=== PATIENT | female | born 1950 | race Caucasian/White ===

== ENCOUNTER 2017-04-15 11:59 | Emergency (ER) | payer OTHER ==
[2017-04-15 12:04] VITALS: O2SAT 100
[2017-04-15 12:16] VITALS: BMI 26.2
[2017-04-15 13:54] LABS: BASO # 0.1 K/uL (0.0-0.2); BASO % 0.9 % (0.0-2.0); EOS # 0.1 K/uL (0.0-0.7); EOS % 1.3 % (0.0-4.0); HEMATOCRIT 42.5 % (34.0-47.0); LYMPH % 26.6 % (20.0-40.0); MEAN CELL VOLUME 100.2 fL (81.0-99.0); MEAN CORPUSCULAR HEMOGLOBIN 33.7 pg (27.0-31.0); MEAN CORPUSCULAR HGB CONC 33.6 g/dL (33.0-37.0); MEAN PLATELET VOLUME 9.4 fL (7.2-11.7); MONO # 0.5 K/uL (0.0-0.8); NRBC % 0.1 % (0.0-2.0); RED CELL DISTRIBUTION WIDTH 12.7 % (11.5-14.5); WHITE BLOOD COUNT 7.5 K/uL (4.8-10.8)
[2017-04-15 14:08] LABS: RBC URINE 1 /hpf (0-3); URINE BACTERIA RARE (<OCC); URINE BILIRUBIN NEGATIVE (NEGATIVE); URINE BLOOD NEGATIVE (NEGATIVE); URINE COLOR Yellow (YELLOW); URINE GLUCOSE (UA) NORMAL (Normal); URINE KETONE NEGATIVE (NEGATIVE); URINE LEUKOCYTE ESTERASE 1+ Leu/uL (Negative); URINE PROTEIN NEGATIVE (NEGATIVE); WBC URINE 13 /hpf (0-5)
[2017-04-15 14:38] LABS: CHLORIDE 101 mmol/L (98-107)
[2017-04-15 14:39] LABS: POTASSIUM 4.6 mmol/L (3.6-5.2); SODIUM 136 mmol/L (132-148)
[2017-04-15 14:41] LABS: ALKALINE PHOSPHATASE 79 U/L (38-126); ALT/SGPT 35 U/L (9-52); AST/SGOT 32 U/L (14-36); BILIRUBIN,TOTAL 0.4 mg/dL (0.2-1.3); BLOOD UREA NITROGEN 12 mg/dL (7-17); CARBON DIOXIDE 29 mmol/L (22-30); GFR AFRICAN-AMERICAN > 60; TOTAL PROTEIN 8.1 g/dL (6.3-8.3)
[2017-04-15 14:42] LABS: CALCIUM 8.4 mg/dl (8.6-10.4); GLUCOSE,RANDOM 72 mg/dL (65-105)
[2017-04-15 14:46] VITALS: BP 185/93; PULSE 92; RESP 18; TEMP 98.1
--- NOTE | 2017-04-15 14:56 | C.PDOC ---
History Of Present Illness 66 year old female, with a history of Diabetes and HTN, presents to the ED with complaints of weakness and cramping of the lower extremities beginning this morning. Patient states she accidentally took Novolog insulin this morning instead of her Levemir, and symptoms began soon after. Patient went to see her PMD, Dr. Chester, in the office and blood sugar was low (60s), so EMS was called. Patient was given oral glucose in the field. Patient also notes blurry vision and tingling of lower extremities. She denies headache, LOC, slurred speech, facial droop, chest pain, shortness of breath, palpitations, dysuria/hematuria. Time Seen by Provider: 04/15/17 13:22 Chief Complaint (Nursing): Medical Clearance History Per: Patient History/Exam Limitations: no limitations Onset/Duration Of Symptoms: Hrs Current Symptoms Are (Timing): Better Reports Recently: Treated By A Physician (Dr. Chester ) Additional History Per: Prior Records Past Medical History Reviewed: Historical Data, Nursing Documentation, Vital Signs Vital Signs: Last Vital Signs Temp 98.1 F 04/15/17 14:45 Pulse 92 H 04/15/17 14:45 Resp 18 04/15/17 14:45 BP 185/93 H 04/15/17 14:45 Pulse Ox 100 04/15/17 16:00 - Medical History PMH: Hypercholesterolemia - [facility] Procedures CONTRAST ARTERIOGRAM-LEG (05/04/14) Family History: States: No Known Family Hx - Social History Hx Alcohol Use: No Hx Substance Use: No - Immunization History Hx Tetanus Toxoid Vaccination: No Hx Influenza Vaccination: No Hx Pneumococcal Vaccination: No Review Of Systems Except As Marked, All Systems Reviewed And Found Negative. Constitutional: Positive for: Weakness. Negative for: Fever, Chills Cardiovascular: Negative for: Chest Pain, Palpitations Respiratory: Negative for: Cough, Shortness of Breath Gastrointestinal: Negative for: Nausea, Vomiting, Abdominal Pain, Diarrhea Neurological: Positive for: Numbness. Negative for: Weakness, Confusion, Seizures, Altered Mental Status, Headache, Dizziness Physical Exam - Physical Exam Appears: Well, Non-toxic, No Acute Distress Skin: Warm, Dry, No Rash Head: Atraumatic, Normacephalic, No Tenderness Eye(s): bilateral: Normal Inspection, PERRL, EOMI Oral Mucosa: Moist Neck: Supple Cardiovascular: Rhythm Regular Respiratory: Normal Breath Sounds, No Rales, No Rhonchi, No Wheezing Gastrointestinal/Abdominal: Normal Exam, Bowel Sounds, Soft, No Tenderness, No Guarding, No Rebound Extremity: Normal ROM, No Tenderness, No Pedal Edema, No Calf Tenderness, Capillary Refill (< 2 sec all digits) Neurological/Psych: Oriented x3, Normal Speech, Normal Cognition, Normal Cranial Nerves, No Cerebellar Signs, Normal Motor, Normal Sensation Gait: Steady ED Course And Treatment - Laboratory Results Result Diagrams: 04/15/17 13:44 04/15/17 13:44 O2 Sat by Pulse Oximetry: 100 (RA) Pulse Ox Interpretation: Normal Progress Note: Blood work, UA ordered and reviewed. Patient given PO Gabapentin (her usual afternoon dose that she takes for neuropathy). Patient observed in ED and accucheck repeated. Food and juice given. Reevaluation Time: 15:00 Reassessment Condition: Improved (Patient reassessed, is resting comfortably, states she feels well and is comfortable being discharged home. Repear accucheck is 109. Patient discharged home, instructed to continue her regular insulin but hold Levemir today and restart it tomorrow. She was instructed to follow up with PMD in 1-2 days, and she understands she should return to ED if symptoms worsen.) Disposition Counseled Patient/Family Regarding: Studies Performed, Diagnosis, Need For Followup - Disposition Referrals: Sharan Chester MD [Staff Provider] - Disposition: HOME/ ROUTINE Disposition Time: 15:00 Condition: STABLE Additional Instructions: FOLLOW UP WITH DR CHESTER IN 1-2 DAYS CONTINUE USING HUMALOG TODAY AFTER MEALS RESTART YOUR USUAL INSULIN REGIMEN TOMORROW RETURN TO ER IF YOU HAVE ANY CONCERNING SYMPTOMS Instructions: Diabetic Hypoglycemia (ED) Forms: [employer] (Swedish) Print Language: MACANESE - Clinical Impression Clinical Impression: Hypoglycemia, Medication error - Scribe Statement The provider has reviewed the documentation as recorded by the Scribe Rahel Garcia All medical record entries made by the Scribe were at my direction and personally dictated by me. I have reviewed the chart and agree that the record accurately reflects my personal performance of the history, physical exam, medical decision making, and the department course for this patient. I have also personally directed, reviewed, and agree with the discharge instructions and disposition.
== END 2017-04-15 15:08 | disposition home or self-care (01) ==
LOC: C.ER 11:59
DX: T38.3X1A Poisoning by insulin and oral hypoglycemic [antidiabetic] drugs, accidental (unintentional), initial encounter (principal); E11.649 Type 2 diabetes mellitus with hypoglycemia without coma; Z79.4 Long term (current) use of insulin; Y92.89 Other specified places as the place of occurrence of the external cause; I10 Essential (primary) hypertension

== ENCOUNTER 2017-12-06 20:07 | Emergency (ER) | payer OTHER ==
[2017-12-06 20:10] VITALS: BMI 24.3
[2017-12-06 20:14] VITALS: BP 150/78; RESP 18
[2017-12-06 20:16] VITALS: PULSE 84; TEMP 98.6; O2SAT 98
--- NOTE | 2017-12-06 20:38 | C.PDOC ---
History Of Present Illness 67 year old female is brought to the ED by EMS for evaluation of left sacroiliac pain. Protocol noticed accucheck was low. Patient refused dextrose and wanted glucose paste instead. Patient reports she was about to eat prior EMS arrival. Patient denies trauma, injury, fall, trauma, hx back pain, narcotics use. Time Seen by Provider: 12/06/17 20:33 Chief Complaint (Nursing): High Blood Sugar History Per: Patient History/Exam Limitations: no limitations Onset/Duration Of Symptoms: Days Current Symptoms Are (Timing): Still Present Current Diabetic Medications: None Causative (Exacerbating) Factor(s): Missed A Meal Treatment Prior To Provider Evaluation: Accucheck Response To Treatment: Good Response Recent travel outside of the [place] States: No Additional History Per: Patient Past Medical History Reviewed: Historical Data, Nursing Documentation, Vital Signs Vital Signs: Last Vital Signs Temp 98.6 F 12/06/17 20:14 Pulse 84 12/06/17 20:14 Resp 18 12/06/17 20:14 BP 150/78 12/06/17 20:14 Pulse Ox 98 12/07/17 01:26 - Medical History PMH: Hypercholesterolemia Denies: Chronic Kidney Disease Surgical History: No Surg Hx - [facility] Procedures CONTRAST ARTERIOGRAM-LEG (05/04/14) Family History: States: Unknown Family Hx - Social History Hx Alcohol Use: No Hx Substance Use: No - Immunization History Hx Tetanus Toxoid Vaccination: No Hx Influenza Vaccination: No Hx Pneumococcal Vaccination: No Review Of Systems Constitutional: Negative for: Fever, Chills Cardiovascular: Negative for: Chest Pain, Palpitations Respiratory: Negative for: Shortness of Breath Gastrointestinal: Negative for: Nausea, Vomiting Musculoskeletal: Positive for: Back Pain Skin: Negative for: Rash Physical Exam - Physical Exam Appears: Non-toxic, No Acute Distress Skin: Normal Color, Warm, Dry Head: Atraumatic, Normacephalic Eye(s): bilateral: Normal Inspection Oral Mucosa: Moist Neck: Normal ROM, Supple Chest: Symmetrical Cardiovascular: Rhythm Regular Respiratory: Normal Breath Sounds, No Rales, No Rhonchi, No Wheezing Gastrointestinal/Abdominal: Soft, No Tenderness, No Guarding, No Rebound Back: No Paraspinal Tenderness Extremity: Normal ROM, No Tenderness, No Swelling Neurological/Psych: Oriented x3, Normal Speech Gait: Steady ED Course And Treatment O2 Sat by Pulse Oximetry: 98 (ON RA) Pulse Ox Interpretation: Normal Progress Note: asked if pt using narcotic pain relivers due to intermittent asleep then arguing with physican and staff and pinpoint pupils, multiple cycles during ED visit. pt denies. Was very upset to have been asked, and left ED soon after ice and Toradol with a brisk gait, yelling at staff, with seemingly minimal hip/lower back pain. Medical Decision Making Medical Decision Making: pinpoint pupils and intermittently awake and yelling, then asleep [place] neg, ? underlying narcotics use, pt denies. ice and NSAIDS educated sacro-iliac strain, worse due to hot rubs. Disposition Doctor Will See Patient In The: Office Counseled Patient/Family Regarding: Studies Performed, Diagnosis - Disposition Referrals: Sharan Chester MD [Staff Provider] - Disposition: HOME/ ROUTINE Disposition Time: 20:42 Condition: GOOD Additional Instructions: bolsa de hielo 1/2 hora por hora, nada caliente ibuprofeno/advil 400-600 mg cada 6 horas jorge necessario NO applica nada caliente- se hace mas inflammado y doloroso. No rigo moni caliente, se hace mas inflammado, y doloroso. Instructions: Muscle Strain, Sacroiliac Joint Pain Forms: [facility] (Polish) Print Language: GEORGIAN - Clinical Impression Clinical Impression: Sacroiliac strain - Scribe Statement The provider has reviewed the documentation as recorded by the Scribe Chris Bocanegra All medical record entries made by the Scribe were at my direction and personally dictated by me. I have reviewed the chart and agree that the record accurately reflects my personal performance of the history, physical exam, medical decision making, and the department course for this patient. I have also personally directed, reviewed, and agree with the discharge instructions and disposition.
== END 2017-12-06 21:00 | disposition home or self-care (01) ==
LOC: C.ER 20:07
DX: S39.012A Strain of muscle, fascia and tendon of lower back, initial encounter (principal); X58.XXXA Exposure to other specified factors, initial encounter
CPT/HCPCS: 82948; 96374; 99284; J1885

== ENCOUNTER 2018-06-04 12:45 | Emergency (ER) | payer OTHER ==
[2018-06-04 15:24] LABS: HCG,QUALITATIVE URINE NEGATIVE (NEGATIVE)
[2018-06-04 15:25] LABS: HEMOGLOBIN 14.5 g/dL (11.0-16.0); MEAN CELL VOLUME 96.6 fL (81.0-99.0); MEAN CORPUSCULAR HEMOGLOBIN 32.3 pg (27.0-31.0); MEAN CORPUSCULAR HGB CONC 33.4 g/dL (33.0-37.0); RBC 4.5 Mil/uL (3.80-5.20); RED CELL DISTRIBUTION WIDTH 13.6 % (11.5-14.5)
[2018-06-04 15:26] LABS: BASO % 0.4 % (0.0-2.0); EOS % 0.1 % (0.0-4.0); LYMPH # 1.1 K/uL (1.0-4.3); LYMPH % 11.5 % (20.0-40.0); MEAN PLATELET VOLUME 10.4 fL (7.2-11.7); MONO # 0.5 K/uL (0.0-0.8); MONO % 5.3 % (0.0-10.0); NEUT # 8.3 K/uL (1.8-7.0); NEUT % 82.7 % (50.0-75.0); NRBC % 0.1 % (0.0-2.0)
[2018-06-04 15:28] LABS: CALCIUM 9.5 mg/dl (8.6-10.4)
[2018-06-04 15:29] LABS: ALB/GLOB RATIO 1.3 (1.0-2.1); ALBUMIN 5.2 g/dL (3.5-5.0)
[2018-06-04 15:37] LABS: SQUAMOUS EPITHIAL 22 /hpf (0-5); URINE BACTERIA FEW (<OCC); URINE BILIRUBIN NEGATIVE (NEGATIVE); URINE BLOOD NEGATIVE (NEGATIVE); URINE CLARITY Hazy (Clear); URINE COLOR Yellow (YELLOW); URINE GLUCOSE (UA) 1+ mg/dL (Normal); URINE HYALINE CAST >20 /lpf (0-2); URINE LEUKOCYTE ESTERASE 1+ Leu/uL (Negative); URINE PROTEIN 1+ mg/dL (NEGATIVE); URINE UROBILINOGEN NORMAL mg/dL (0.2-1.0)
[2018-06-04 15:49] LABS: CK-MB 1.25 ng/mL (0.0-3.38); TROPONIN I 0.025 ng/mL (0.00-0.120)
[2018-06-04] MEDS ORDERED: Sodium Chloride 0.9% 1,000 ML IV ONE (16:29)
--- NOTE | 2018-06-04 16:55 | C.PDOC ---
Past Medical History - Medical History PMH: Hypercholesterolemia Denies: Chronic Kidney Disease - [facility] Procedures CONTRAST ARTERIOGRAM-LEG (05/04/14) Family History: States: Unknown Family Hx - Social History Hx Alcohol Use: No Hx Substance Use: No - Immunization History Hx Tetanus Toxoid Vaccination: No Hx Influenza Vaccination: No Hx Pneumococcal Vaccination: No ED Course And Treatment - Laboratory Results Result Diagrams: 06/04/18 12:56 06/04/18 12:56 Disposition Counseled Patient/Family Regarding: Studies Performed, Diagnosis, Need For Followup, Rx Given - Disposition Referrals: [facility] [Outside] Disposition: HOME/ ROUTINE Disposition Time: 16:52 Condition: STABLE Additional Instructions: FOLLOW UP WITH YOUR DOCTOR/CLINIC IN 1-2 DAYS USE MEDICATION NEEDED DRINK PLENTY OF CLEAR FLUIDS RETURN TO ER IF SYMPTOMS WORSEN Prescriptions: Ondansetron ODT [Zofran ODT] 1 odt PO BID PRN #15 odt PRN Reason: Nausea/Vomiting Instructions: Nausea and Vomiting, Adult (DC) Print Language: AUSTRIAN - Clinical Impression Clinical Impression: Nausea & vomiting
[2018-06-04 17:02] VITALS: BP 138/79; PULSE 94; RESP 19; TEMP 99.1; O2SAT 95
[2018-06-05 11:41] LABS: VENOUS BLOOD GAS PCO2 47 mmHg (40-60); VENOUS BLOOD PH 7.32 (7.32-7.43)
[2018-06-05 11:42] LABS: VENOUS BLOOD GAS BASE EXCESS -2.2 mmol/L (0.0-2.0); VENOUS BLOOD GAS PO2 20 mm/Hg (30-55)
--- NOTE | 2018-06-05 23:17 | CARD ---
APPROVED REPORT Date of service: 06/04/2018 EKG Measurement Heart [id number] <Conclusion> Sinus rhythm with sinus arrhythmia with short PA Possible Left atrial enlargement Left ventricular hypertrophy Abnormal ECG
== END 2018-06-04 17:10 | disposition home or self-care (01) ==
LOC: C.ER 12:45
DX: K52.9 Noninfective gastroenteritis and colitis, unspecified (principal)

== ENCOUNTER 2018-08-01 16:11 | Inpatient (IN) | payer OTHER ==
[2018-08-01 16:24] VITALS: BMI 23.3
[2018-08-01] MEDS ORDERED: Labetalol 25mg/5ml Syringe IVP STA (16:24)
[2018-08-01] MEDS ORDERED: Nitroglycerin 2% Ointment Foilpak UD TOP STA (16:24)
[2018-08-01 16:47] LABS: BASO # 0.1 K/uL (0.0-0.2); BASO % 0.3 % (0.0-2.0); HEMOGLOBIN 13.9 g/dL (11.0-16.0); LYMPH # 0.6 K/uL (1.0-4.3); LYMPH % 2.8 % (20.0-40.0); MEAN CELL VOLUME 95.2 fL (81.0-99.0); MEAN CORPUSCULAR HEMOGLOBIN 30.9 pg (27.0-31.0); MEAN CORPUSCULAR HGB CONC 32.5 g/dL (33.0-37.0); MEAN PLATELET VOLUME 10.1 fL (7.2-11.7); MONO # 0.5 K/uL (0.0-0.8); MONO % 2.3 % (0.0-10.0); NEUT # 19.5 K/uL (1.8-7.0); NEUT % 94.6 % (50.0-75.0); PLATELET COUNT 249 K/uL (130-400); RED CELL DISTRIBUTION WIDTH 13.6 % (11.5-14.5); WHITE BLOOD COUNT 20.6 K/uL (4.8-10.8)
[2018-08-01] MEDS ORDERED: Labetalol 5mg/ml (4ml) ONE (16:49)
[2018-08-01] MEDS ORDERED: Nitroglycerin 2% Ointment Foilpak UD TOP ONE (16:49)
[2018-08-01 16:55] LABS: INR 1.1; PROTHROMBIN TIME 12.1 SECONDS (9.7-12.2)
[2018-08-01 17:22] LABS: BLOOD UREA NITROGEN 26 mg/dL (7-17); CALCIUM 9.6 mg/dl (8.6-10.4); GFR NON-AFRICAN AMERICAN > 60
[2018-08-01 17:33] LABS: B-TYPE NATRIURETIC PEPTIDE 955 pg/mL (0-900); BANDS 5 % (0-2); LYMPHOCYTE 1 % (20-40); MICROCYTOSIS SLIGHT; MONOCYTE 2 % (0-10); NEUTROPHIL 92 % (50-75); PLATELET ESTIMATE NORMAL (NORMAL); TOTAL CELLS COUNTED 100
[2018-08-01 17:34] LABS: ALB/GLOB RATIO 1.5 (1.0-2.1); ALBUMIN 5.4 g/dL (3.5-5.0); ALT/SGPT 11 U/L (9-52); AST/SGOT 55 U/L (14-36)
[2018-08-01] MEDS ORDERED: Sodium Chloride 0.9% 1,000 ML IV ONE (17:37)
[2018-08-01] MEDS ORDERED: (Novolin R) Insulin Human Regular 100 units/ml vial IVP STA (17:37)
[2018-08-01 17:38] LABS: OVALOCYTES SLIGHT
[2018-08-01] MEDS ORDERED: (Novolin R) Insulin Human Regular 100 units/ml vial ONE (17:46)
--- NOTE | 2018-08-01 17:48 | C.PDOC ---
History Of Present Illness 67 y/o female pt presents to the ER c/o elevated blood pressure. Associated sx includes vomiting. Pt reports she was unable to take her blood pressure medications due to her vomiting. Pt was seen before in the ER for same and recent visit was June 04. Pt has no other complaints or associated sx. Time Seen by Provider: 08/01/18 16:13 Chief Complaint (Nursing): GI Problem History Per: Patient History/Exam Limitations: no limitations Onset/Duration Of Symptoms: Days Current Symptoms Are (Timing): Still Present Past Medical History Reviewed: Historical Data, Nursing Documentation, Vital Signs Vital Signs: Last Vital Signs Temp 97.9 F 08/01/18 16:27 Pulse 78 08/01/18 17:32 Resp 26 H 08/01/18 17:32 BP 187/112 H 08/01/18 17:32 Pulse Ox 100 08/01/18 17:32 - Medical History PMH: HTN, Hypercholesterolemia Surgical History: Back Surgery (lumbar) - [facility] Procedures CONTRAST ARTERIOGRAM-LEG (05/04/14) Family History: States: Unknown Family Hx - Social History Hx Alcohol Use: No Hx Substance Use: No - Immunization History Hx Tetanus Toxoid Vaccination: No Hx Influenza Vaccination: Yes Hx Pneumococcal Vaccination: No Review Of Systems Except As Marked, All Systems Reviewed And Found Negative. Constitutional: Positive for: Other (elevated blood pressure ) Gastrointestinal: Positive for: Vomiting Physical Exam - Physical Exam Appears: Non-toxic, No Acute Distress Skin: Warm, Dry Head: Normacephalic Eye(s): bilateral: Normal Inspection Oral Mucosa: Moist Throat: Normal Chest: Symmetrical Cardiovascular: Rhythm Regular Respiratory: Normal Breath Sounds Gastrointestinal/Abdominal: Soft, No Tenderness Neurological/Psych: Oriented x3, Normal Speech, Normal Cognition, Other (neuro intact ) ED Course And Treatment - Laboratory Results Result Diagrams: 08/01/18 16:42 08/01/18 16:42 Lab Results: PT 12.1 SECONDS (9.7-12.2) 08/01/18 16:42 INR 1.1 08/01/18 16:42 APTT 29 SECONDS (21-34) 08/01/18 16:42 Troponin I 0.0360 ng/mL (0.00-0.120) 08/01/18 16:42 NT-Pro-B Natriuret Pep 955 pg/mL (0-900) H 08/01/18 16:42 Total Bilirubin 1.7 mg/dL (0.2-1.3) H 08/01/18 16:42 AST 55 U/L (14-36) H D 08/01/18 16:42 ALT 11 U/L (9-52) 08/01/18 16:42 Alkaline Phosphatase 110 U/L (38-126) 08/01/18 16:42 Total Protein 9.0 g/dL (6.3-8.3) H 08/01/18 16:42 Albumin 5.4 g/dL (3.5-5.0) H 08/01/18 16:42 Globulin 3.6 gm/dL (2.2-3.9) 08/01/18 16:42 Albumin/Globulin Ratio 1.5 (1.0-2.1) 08/01/18 16:42 O2 Sat by Pulse Oximetry: 100 (RA) Pulse Ox Interpretation: Normal Medical Decision Making Medical Decision Making: Plans: -- chem labs -- blood work -- EKG -- CXR -- nitroglycerin -- novolin -- pepcid -- IV fluids -- Zofran -- Trandate -- vasotec uncontrolled DM, leading to poor HTN med compliance and vomiting. on minimal NETO @ home. NOT in DKA today adm to continue to hydrate and repleat 1829: noted increasing BP Labetolol 200 mg PO given for BP 1914: asking for Gabepentin 600 PO for restless leg syndrome but vomiting now Zofran 4 IV repeated, then wait 15 mins to give Gabapentin to assure tolerated PO Disposition Doctor Will See Patient In The: Hospital Counseled Patient/Family Regarding: Diagnosis, Smoking Cessation - Disposition Disposition: HOSPITALIZED Disposition Time: 18:00 Condition: GOOD - Clinical Impression Clinical Impression: Nausea & vomiting, Hyperglycemia - Scribe Statement The provider has reviewed the documentation as recorded by the Fransico Eastman Do Provider Attestation: All medical record entries made by the Fransico were at my direction and personally dictated by me. I have reviewed the chart and agree that the record accurately reflects my personal performance of the history, physical exam, medical decision making, and the department course for this patient. I have also personally directed, reviewed, and agree with the discharge instructions and disposition.
--- NOTE | 2018-08-01 17:58 | C.PDOC ---
Time Seen by Provider: 08/01/18 16:13 Chief Complaint (Nursing): GI Problem Past Medical History Vital Signs: Last Vital Signs Temp 97.9 F 08/01/18 16:27 Pulse 78 08/01/18 17:32 Resp 26 H 08/01/18 17:32 BP 199/103 H 08/01/18 17:40 Pulse Ox 100 08/01/18 17:54 - Medical History PMH: HTN, Hypercholesterolemia Denies: Chronic Kidney Disease Surgical History: Back Surgery (lumbar) - [facility] Procedures CONTRAST ARTERIOGRAM-LEG (05/04/14) Family History: States: Unknown Family Hx - Social History Hx Alcohol Use: No Hx Substance Use: No - Immunization History Hx Tetanus Toxoid Vaccination: No Hx Influenza Vaccination: Yes Hx Pneumococcal Vaccination: No ED Course And Treatment - Laboratory Results Result Diagrams: 08/01/18 16:42 08/01/18 16:42 Lab Results: PT 12.1 SECONDS (9.7-12.2) 08/01/18 16:42 INR 1.1 08/01/18 16:42 APTT 29 SECONDS (21-34) 08/01/18 16:42 Troponin I 0.0360 ng/mL (0.00-0.120) 08/01/18 16:42 NT-Pro-B Natriuret Pep 955 pg/mL (0-900) H 08/01/18 16:42 Total Bilirubin 1.7 mg/dL (0.2-1.3) H 08/01/18 16:42 AST 55 U/L (14-36) H D 08/01/18 16:42 ALT 11 U/L (9-52) 08/01/18 16:42 Alkaline Phosphatase 110 U/L (38-126) 08/01/18 16:42 Total Protein 9.0 g/dL (6.3-8.3) H 08/01/18 16:42 Albumin 5.4 g/dL (3.5-5.0) H 08/01/18 16:42 Globulin 3.6 gm/dL (2.2-3.9) 08/01/18 16:42 Albumin/Globulin Ratio 1.5 (1.0-2.1) 08/01/18 16:42 Lab Interpretation: Abnormal ECG: Interpreted By Id ECG Rhythm: Sinus Tachycardia (109) O2 Sat by Pulse Oximetry: 100 (RA) Pulse Ox Interpretation: Normal - Radiology CXR: Interpreted by Me CXR Interpretation: Yes: No Acute Disease Reevaluation Time: 17:56 Reassessment Condition: Improved - Physician Consult Information Outcome Of Conversation: 1750: d/w Dr. Chester, PMD, ok to admit Medical Decision Making Medical Decision Making: uncontrolled DM, leading to poor HTN med compliance and vomiting. on minimal NETO @ home. NOT in DKA today adm to continue to hydrate and repleat Disposition Doctor Will See Patient In The: Hospital Counseled Patient/Family Regarding: Studies Performed, Diagnosis - Disposition Disposition: HOSPITALIZED Disposition Time: 17:57 Condition: GOOD Forms: [employer] (Chilean) - Clinical Impression Clinical Impression: Nausea & vomiting, Hyperglycemia
--- NOTE | 2018-08-01 18:40 | RAD ---
HISTORY: SOB COMPARISON: Chest x-ray performed 10/12/15 TECHNIQUE: Chest, one view. FINDINGS: LUNGS: Hyperinflation may be seen in the setting of COPD. No focal consolidation. Please note that chest x-ray has limited sensitivity for the detection of pulmonary masses. PLEURA: No significant pleural effusion identified. No definite pneumothorax . CARDIOVASCULAR: Heart size appears within limits. Faint atherosclerotic calcifications present. OSSEOUS STRUCTURES: Degenerative changes of the spine. VISUALIZED UPPER ABDOMEN: Unremarkable. OTHER FINDINGS: None. IMPRESSION: Hyperinflation may be seen in setting of COPD.
[2018-08-01 18:47] LABS: SQUAMOUS EPITHIAL 5 /hpf (0-5); URINE BACTERIA FEW (<OCC); URINE BILIRUBIN NEGATIVE (NEGATIVE); URINE BLOOD 1+ (NEGATIVE); URINE CLARITY Hazy (Clear); URINE COLOR Yellow (YELLOW); URINE GLUCOSE (UA) 3+ mg/dL (Normal); URINE LEUKOCYTE ESTERASE TRACE Leu/uL (Negative); URINE PROTEIN 2+ mg/dL (NEGATIVE); URINE UROBILINOGEN NORMAL mg/dL (0.2-1.0)
[2018-08-01] MEDS ORDERED: Glucagon Recombinant 1 mg Inj IM PRN (21:27)
[2018-08-01] MEDS ORDERED: Dextrose 50% SYRINGE Inj (50 ml) IV PRN (21:27)
[2018-08-01] MEDS ORDERED: Lactated Ringer's 1,000 ML IV ONE (21:27)
[2018-08-01] MEDS: (Novolin R) Insulin Human Regular 100 units/ml vial SC SCH (21:54)
[2018-08-01] MEDS ORDERED: (Lantus) Insulin Glargine, Recombinant SC SCH (22:00)
[2018-08-01] MEDS: (Lantus) Insulin Glargine, Recombinant SC SCH (22:12)
[2018-08-02] MEDS ORDERED: Iohexol 240 (50 ml) PO ONE (03:45)
[2018-08-02 07:27] LABS: HEMOGLOBIN 12.8 g/dL (11.0-16.0); MEAN CORPUSCULAR HEMOGLOBIN 31.2 pg (27.0-31.0); MEAN CORPUSCULAR HGB CONC 32.5 g/dL (33.0-37.0); MEAN PLATELET VOLUME 10.6 fL (7.2-11.7); RBC 4.09 Mil/uL (3.80-5.20); RED CELL DISTRIBUTION WIDTH 13.9 % (11.5-14.5)
[2018-08-02 07:31] LABS: WHITE BLOOD COUNT 20.1 K/uL (4.8-10.8)
[2018-08-02 08:04] LABS: ALB/GLOB RATIO 1.5 (1.0-2.1); ALBUMIN 4.6 g/dL (3.5-5.0); ALT/SGPT 32 U/L (9-52); AST/SGOT 33 U/L (14-36); BLOOD UREA NITROGEN 29 mg/dL (7-17); CALCIUM 9.4 mg/dl (8.6-10.4); GFR NON-AFRICAN AMERICAN > 60
[2018-08-02] MEDS: (Novolin R) Insulin Human Regular 100 units/ml vial SC SCH ×4 (08:09→21:47)
[2018-08-02] MEDS ORDERED: Nitroglycerin 2% Ointment Foilpak UD TOP ONE ×2 (09:00→10:15)
[2018-08-02] MEDS ORDERED: Iodixanol 320 MG/ML 100 ML BOTTLE IV ONE (09:59)
[2018-08-02] MEDS: Enoxaparin 40 mg Syringe SC SCH (10:23)
--- NOTE | 2018-08-02 12:09 | CT ---
Date of service: 08/02/2018 PROCEDURE: CT Abdomen and Pelvis with contrast HISTORY: Nausea vomiting and abdominal pain. COMPARISON: Correlation made with prior CTA of the abdomen pelvis and lower extremities dated 02/11/2018. TECHNIQUE: Contiguous helical/transaxial sections of the abdomen pelvis performed following oral and intravenous injection of approximately 100 cc Visipaque 320 contrast material. Additional 2D sagittal and coronal reformats generated. Radiation dose: Total exam DLP = 435.83 mGy-cm. This CT exam was performed using one or more of the following dose reduction techniques: Automated exposure control, adjustment of the mA and/or kV according to patient size, and/or use of iterative reconstruction technique. FINDINGS: LOWER THORAX: Heart size within range of normal. There is a tiny hiatal hernia. Lung bases clear without focal consolidation. No effusion or basilar pneumothorax. LIVER: Liver exhibits normal size. Mild fatty hepatic infiltration. Portal and splenic veins are opacified. No obvious hepatic masses or collections seen on this exam. GALLBLADDER AND BILE DUCTS: Gallbladder is incompletely distended with minimal wall thickening. PANCREAS: Pancreas is atrophic and fatty replaced. No obvious pancreatic mass collection or calcification. Pancreatic duct is visible though not significantly dilated SPLEEN: Spleen exhibits normal size and attenuation pattern without mass collection or calcification. ADRENALS: Mildly enlarged nodular appearing adrenal glands; follow-up nonemergent MRI of the adrenal glands could be performed for further evaluation. KIDNEYS AND URETERS: Kidneys demonstrate symmetric nephrograms. No evidence of nephrolithiasis or hydronephrosis. VASCULATURE: Unremarkable. No aneurysm. Mild aortic atherosclerotic calcification or mural plaque present. BOWEL: Evaluation of the bowel slightly limited due to incomplete opacification. Stomach is partially distended with oral contrast material and air. Slight wall thickening likely due to incomplete distention however gastritis or other intrinsic wall lesion not excluded. Visualized loops of small bowel exhibit normal contour and caliber. No evidence of acute mechanical small bowel obstruction with oral contrast material extending into the colon to the level of the distal transverse colon region. APPENDIX: Normal appendix. PERITONEUM: Unremarkable. No free fluid. No free air. LYMPH NODES: Unremarkable. No enlarged lymph nodes. BLADDER: Urinary bladder is incompletely distended which in part accounts for thick-walled appearance however cystitis should be excluded with urinalysis correlation. REPRODUCTIVE: Unremarkable as visualized. BONES: Mild multilevel degenerative spondylosis of the lower thoracic and lumbar spine.. Redemonstrated is a small sclerotic density left iliac bone possibly representing an osteoma or bone island unchanged OTHER FINDINGS: None. IMPRESSION: Fatty hepatic infiltration Stomach incompletely distended which in part accounts for thick-walled appearance however gastritis or other intrinsic/invasive wall lesion not excluded. Enlarged nodular appearing adrenal glands. Consider follow-up nonemergent MRI of the adrenal glands
--- NOTE | 2018-08-02 12:31 | CP.PCM.CON ---
<Alfonso Bush - Last Filed: 08/02/18 12:51> History of Present Illness - History of Present Illness History of Present Illness: PGY5 GI Initial Consult Rubi York is a 67F w/ hx of DM, HTN, Hl who presented with elevated BP, nausea and vomting. Pt states that her symptoms started 1 day prior to admission. She states that that the onset was sudden. denies any fever, chills or diaphoresis. Denies nay recent travel or sick contacts. Pt sates that she was not able to take her BP meds 2/2 nausea and vomiting. Emesis was bilious and non-bloody. Denies any previous GERD like symptoms. Pt notes 15lb weight loss in the last 3 months. Denies nay previous EGD PMHx: HTN, DM, HL PShx: Denies Social hx: 1/2 pack for 20years, denies ETOH and illicit drugs Family hx: denies any GI related maliganacy Endo hx: Colonoscopy 2014: internal hemorrhoids, left sided colitis 12 point ROS conducted, neg other than above Past Patient History - Past Medical History & Family History Past Medical History?: Yes - Past Social History Smoking Status: Former Smoker - CARDIAC Hx Hypercholesterolemia: Yes Hx Hypertension: Yes - PULMONARY Hx Respiratory Disorders: No - NEUROLOGICAL Hx Neurological Disorder: Yes (DIABETIC NEUROPATHY) Other/Comment: neuropathy - HEENT Hx HEENT Problems: Yes Hx Cataracts: Yes (RIGHT EYE) - RENAL Hx Chronic Kidney Disease: No - ENDOCRINE/METABOLIC Hx Endocrine Disorders: Yes Hx Diabetes Mellitus Type 2: Yes - HEMATOLOGICAL/ONCOLOGICAL Hx Blood Disorders: No - INTEGUMENTARY Hx Dermatological Problems: No - MUSCULOSKELETAL/RHEUMATOLOGICAL Hx Musculoskeletal Disorders: Yes Hx Back Pain: Yes Hx Falls: Yes Other/Comment: neuropathy - GASTROINTESTINAL Hx Gastrointestinal Disorders: No - GENITOURINARY/GYNECOLOGICAL Hx Genitourinary Disorders: No - PSYCHIATRIC Hx Substance Use: No - SURGICAL HISTORY Hx Surgeries: Yes Hx Cataract Extraction: Yes (RIOL) Hx Musculoskeletal Surgery: Yes (LUMBAR SPINE W MARSHA) - ANESTHESIA Hx Anesthesia: Yes Hx Anesthesia Reactions: No Hx Malignant Hyperthermia: No Meds Allergies/Adverse Reactions: Allergies Allergy/AdvReac Type Severity Reaction Status Date / Time No Known Allergies Allergy Verified 04/15/17 12:15 - Medications Medications: Current Medications Dextrose (Dextrose 50% Inj) 0 ml IV STAT PRN; Protocol PRN Reason: Hypoglycemia Protocol Dextrose (Glutose 15) 0 gm PO ONCE PRN; Protocol PRN Reason: Hypoglycemia Protocol Enalapril Maleate (Vasotec) 20 mg PO DAILY [facility] Last Admin: 08/02/18 10:22 Dose: 20 mg Enoxaparin Sodium (Lovenox) 40 mg SC DAILY [facility] Last Admin: 08/02/18 10:23 Dose: 40 mg Gabapentin (Neurontin) 300 mg PO TID [facility] Last Admin: 08/02/18 10:23 Dose: 300 mg Glimepiride (Amaryl) 4 mg PO DAILY [facility] Last Admin: 08/02/18 10:23 Dose: 4 mg Glucagon (Glucagen Diagnostic Kit) 0 mg IM STAT PRN; Protocol PRN Reason: Hypoglycemia Protocol Ceftriaxone Sodium 1 gm/ (Sodium Chloride) 100 mls @ 100 mls/hr IVPB DAILY [facility]; Protocol Last Admin: 08/02/18 10:23 Dose: 100 mls/hr Dextrose (Dextrose 5% In Water 1000 Ml) 1,000 mls @ 0 mls/hr IV .Q0M PRN; Protocol PRN Reason: Hypoglycemia Protocol Insulin Glargine (Lantus) [address] [facility] Last Admin: 08/01/18 22:12 Dose: Not Given Insulin Human Regular (Novolin R) 0 unit SC [facility]; Protocol Last Admin: 08/02/18 12:02 Dose: 4 u Metoclopramide HCl (Reglan) 10 mg IVP Q8 [facility] Last Admin: 08/02/18 06:46 Dose: 10 mg Metoprolol Tartrate (Lopressor) 25 mg PO BID [facility] Last Admin: 08/02/18 10:23 Dose: 25 mg Ondansetron HCl (Zofran Inj) 4 mg IVP Q6 PRN PRN Reason: Nausea/Vomiting Last Admin: 08/02/18 02:42 Dose: 4 mg Pantoprazole Sodium (Protonix Inj) 40 mg IVP DAILY [facility] Last Admin: 08/02/18 10:22 Dose: 40 mg Rosuvastatin Calcium (Crestor) 10 mg PO HS [facility] Last Admin: 08/01/18 22:11 Dose: 10 mg Physical Exam - Constitutional Appears: Non-toxic, No Acute Distress - Head Exam Head Exam: ATRAUMATIC, NORMOCEPHALIC - Eye Exam Eye Exam: Normal appearance - ENT Exam ENT Exam: Mucous Membranes Moist - Respiratory Exam Respiratory Exam: Clear to Auscultation Bilateral, NORMAL BREATHING PATTERN. absent: Rales, Rhonchi, Wheezes - Cardiovascular Exam Cardiovascular Exam: REGULAR RHYTHM, +S1, +S2 - GI/Abdominal Exam GI & Abdominal Exam: Normal Bowel Sounds, Soft. absent: Diminished Bowel Sounds, Distended, Firm, Guarding, Hernia, Organomegaly, Rebound, Rigid, Tenderness - Extremities Exam Extremities exam: Negative for: joint swelling, pedal edema - Neurological Exam Neurological exam: Alert, Oriented x3 - Psychiatric Exam Psychiatric exam: Normal Affect, Normal Mood - Skin Skin Exam: Dry, Intact, Normal Color, Warm Results - Vital Signs Recent Vital Signs: Last Vital Signs Temp 98.9 F 08/02/18 08:21 Pulse 99 H 08/02/18 12:18 Resp 20 08/02/18 12:18 BP 197/87 H 08/02/18 12:18 Pulse Ox 97 08/02/18 08:21 - Labs Result Diagrams: 08/02/18 07:20 08/02/18 07:20 Labs: Laboratory Results - last 24 hr 08/01/18 08/01/18 08/01/18 16:25 16:42 16:42 WBC 20.6 H D RBC 4.50 Hgb 13.9 Hct 42.8 MCV 95.2 MCH 30.9 MCHC 32.5 L RDW 13.6 Plt Count 249 MPV 10.1 Neut % (Auto) 94.6 H Lymph % (Auto) 2.8 L [place] % (Auto) 2.3 Eos % (Auto) 0.0 Baso % (Auto) 0.3 Neut # (Auto) 19.5 H Lymph # (Auto) 0.6 L [place] # (Auto) 0.5 Eos # (Auto) 0.0 Baso # (Auto) 0.1 Neutrophils % (Manual) 92 H Band Neutrophils % 5 H Lymphocytes % (Manual) 1 L Monocytes % (Manual) 2 Platelet Estimate Normal Microcytosis (manual) Slight Ovalocytes Slight PT INR APTT Sodium 136 Potassium 5.9 H Chloride 102 Carbon Dioxide 18 L Anion Gap 22 H BUN 26 H Creatinine 0.8 Est GFR ( Amer) > 60 Est GFR (Non-Af Amer) > 60 POC Glucose (mg/dL) 319 H Random Glucose 352 H D Calcium 9.6 Total Bilirubin 1.7 H AST 55 H D ALT 11 Alkaline Phosphatase 110 Troponin I 0.0360 NT-Pro-B Natriuret Pep 955 H Total Protein 9.0 H Albumin 5.4 H Globulin 3.6 Albumin/Globulin Ratio 1.5 Urine Color Urine Clarity Urine pH Ur Specific [place] Urine Protein Urine Glucose (UA) Urine Ketones Urine Blood Urine Nitrate Urine Bilirubin Urine Urobilinogen Ur Leukocyte Esterase Urine WBC (Auto) Urine RBC (Auto) Ur Squamous Epith Cells Urine Bacteria Hyaline Casts 08/01/18 08/01/18 08/01/18 16:42 17:34 18:34 WBC RBC Hgb Hct MCV MCH MCHC RDW Plt Count MPV Neut % (Auto) Lymph % (Auto) [place] % (Auto) Eos % (Auto) Baso % (Auto) Neut # (Auto) Lymph # (Auto) [place] # (Auto) Eos # (Auto) Baso # (Auto) Neutrophils % (Manual) Band Neutrophils % Lymphocytes % (Manual) Monocytes % (Manual) Platelet Estimate Microcytosis (manual) Ovalocytes PT 12.1 INR 1.1 APTT 29 Sodium Potassium Chloride Carbon Dioxide Anion Gap BUN Creatinine Est GFR ( Amer) Est GFR (Non-Af Amer) POC Glucose (mg/dL) 331 H Random Glucose Calcium Total Bilirubin AST ALT Alkaline Phosphatase Troponin I NT-Pro-B Natriuret Pep Total Protein Albumin Globulin Albumin/Globulin Ratio Urine Color Yellow Urine Clarity Hazy Urine pH 5.0 Ur Specific [place] 1.023 Urine Protein 2+ H Urine Glucose (UA) 3+ H Urine Ketones 1+ H Urine Blood 1+ H Urine Nitrate Negative Urine Bilirubin Negative Urine Urobilinogen Normal Ur Leukocyte Esterase Trace Urine WBC (Auto) 14 H Urine RBC (Auto) 3 Ur Squamous Epith Cells 5 Urine Bacteria Few H Hyaline Casts 6-10 H 08/01/18 08/01/18 08/02/18 18:56 21:13 07:20 WBC 20.1 H RBC 4.09 Hgb 12.8 Hct 39.3 MCV 96.0 MCH 31.2 H MCHC 32.5 L RDW 13.9 Plt Count 218 MPV 10.6 Neut % (Auto) Lymph % (Auto) [place] % (Auto) Eos % (Auto) Baso % (Auto) Neut # (Auto) Lymph # (Auto) [place] # (Auto) Eos # (Auto) Baso # (Auto) Neutrophils % (Manual) Band Neutrophils % Lymphocytes % (Manual) Monocytes % (Manual) Platelet Estimate Microcytosis (manual) Ovalocytes PT INR APTT Sodium Potassium Chloride Carbon Dioxide Anion Gap BUN Creatinine Est GFR ( Amer) Est GFR (Non-Af Amer) POC Glucose (mg/dL) 125 H 176 H Random Glucose Calcium Total Bilirubin AST ALT Alkaline Phosphatase Troponin I NT-Pro-B Natriuret Pep Total Protein Albumin Globulin Albumin/Globulin Ratio Urine Color Urine Clarity Urine pH Ur Specific [place] Urine Protein Urine Glucose (UA) Urine Ketones Urine Blood Urine Nitrate Urine Bilirubin Urine Urobilinogen Ur Leukocyte Esterase Urine WBC (Auto) Urine RBC (Auto) Ur Squamous Epith Cells Urine Bacteria Hyaline Casts 08/02/18 08/02/18 08/02/18 07:20 07:20 11:11 WBC RBC Hgb Hct MCV MCH MCHC RDW Plt Count MPV Neut % (Auto) Lymph % (Auto) [place] % (Auto) Eos % (Auto) Baso % (Auto) Neut # (Auto) Lymph # (Auto) [place] # (Auto) Eos # (Auto) Baso # (Auto) Neutrophils % (Manual) Band Neutrophils % Lymphocytes % (Manual) Monocytes % (Manual) Platelet Estimate Microcytosis (manual) Ovalocytes PT INR APTT Sodium 137 Potassium 4.4 Chloride 102 Carbon Dioxide 18 L Anion Gap 21 H BUN 29 H Creatinine 0.9 Est GFR ( Amer) > 60 Est GFR (Non-Af Amer) > 60 POC Glucose (mg/dL) 275 H 270 H Random Glucose 274 H D Calcium 9.4 Total Bilirubin 0.6 AST 33 ALT 32 Alkaline Phosphatase 105 Troponin I NT-Pro-B Natriuret Pep Total Protein 7.6 Albumin 4.6 Globulin 3.0 Albumin/Globulin Ratio 1.5 Urine Color Urine Clarity Urine pH Ur Specific [place] Urine Protein Urine Glucose (UA) Urine Ketones Urine Blood Urine Nitrate Urine Bilirubin Urine Urobilinogen Ur Leukocyte Esterase Urine WBC (Auto) Urine RBC (Auto) Ur Squamous Epith Cells Urine Bacteria Hyaline Casts Assessment & Plan - Assessment and Plan (Free Text) Assessment: Rubi York is a 67F w/ hx of DM, HTN, Hl who presented with elevated BP, nausea and vomting. CT revealed gastric wall thickening. Intractable Nausea and Vomiting Gastric Wall Thickening? on CT; DDx underdistention, PUD, gastritis, mass Accelerated HTN Hyperglycemia Diverticulosis Plan: -control HTN and glucose -zofran PRN -will add reglan PRN -continue protonix 40mg IV Daily -can start clears -clinical course -may benefir form EGD and colonscopy, will determine timing (inpt vs oupt) based on clinical course Will D/w Dr. Collado <Kunal Collado - Last Filed: 08/03/18 11:26> Meds - Medications Medications: Current Medications Dextrose (Dextrose 50% Inj) 0 ml IV STAT PRN; Protocol PRN Reason: Hypoglycemia Protocol Dextrose (Glutose 15) 0 gm PO ONCE PRN; Protocol PRN Reason: Hypoglycemia Protocol Enalapril Maleate (Vasotec) 20 mg PO DAILY [facility] Last Admin: 08/03/18 10:09 Dose: 20 mg Enoxaparin Sodium (Lovenox) 40 mg SC DAILY [facility] Last Admin: 08/03/18 10:10 Dose: 40 mg Gabapentin (Neurontin) 300 mg PO TID [facility] Last Admin: 08/03/18 10:09 Dose: 300 mg Glimepiride (Amaryl) 4 mg PO DAILY [facility] Last Admin: 08/03/18 10:09 Dose: 4 mg Glucagon (Glucagen Diagnostic Kit) 0 mg IM STAT PRN; Protocol PRN Reason: Hypoglycemia Protocol Dextrose (Dextrose 5% In Water 1000 Ml) 1,000 mls @ 0 mls/hr IV .Q0M PRN; Protocol PRN Reason: Hypoglycemia Protocol Piperacillin Sod/Tazobactam Sod (Zosyn 3.375 Gm Iv Premix) 3.375 gm in 50 mls @ 100 mls/hr IVPB Q8H [facility]; Protocol Last Admin: 08/03/18 06:15 Dose: 100 mls/hr Insulin Glargine (Lantus) 20 unit SC HS [facility] Last Admin: 08/02/18 21:51 Dose: Not Given Insulin Human Regular (Novolin R) 0 unit SC [facility]; Protocol Last Admin: 08/03/18 08:30 Dose: 2 u Metoclopramide HCl (Reglan) 10 mg IVP Q8 [facility] Last Admin: 08/03/18 06:14 Dose: 10 mg Metoprolol Tartrate (Lopressor) 25 mg PO BID [facility] Last Admin: 08/03/18 10:09 Dose: 25 mg Ondansetron HCl (Zofran Inj) 4 mg IVP Q6 PRN PRN Reason: Nausea/Vomiting Last Admin: 08/02/18 02:42 Dose: 4 mg Pantoprazole Sodium (Protonix Inj) 40 mg IVP DAILY [facility] Last Admin: 08/03/18 10:10 Dose: 40 mg Rosuvastatin Calcium (Crestor) 10 mg PO HS [facility] Last Admin: 08/02/18 21:45 Dose: 10 mg Results - Vital Signs Recent Vital Signs: Last Vital Signs Temp 99.4 F 08/03/18 00:00 Pulse 75 08/03/18 00:00 Resp 20 08/03/18 00:00 BP 106/62 08/03/18 10:09 Pulse Ox 98 08/03/18 00:00 - Labs Result Diagrams: 08/03/18 08:15 08/03/18 08:15 Labs: Laboratory Results - last 24 hr 08/02/18 08/02/18 08/03/18 16:12 21:13 08:15 WBC 8.7 D RBC 3.69 L Hgb 11.8 Hct 35.7 MCV 96.6 MCH 32.0 H MCHC 33.2 RDW 13.7 Plt Count 207 MPV 10.8 Neut % (Auto) 64.0 Lymph % (Auto) 26.1 [place] % (Auto) 7.9 Eos % (Auto) 0.7 Baso % (Auto) 1.3 Neut # (Auto) 5.6 Lymph # (Auto) 2.3 [place] # (Auto) 0.7 Eos # (Auto) 0.1 Baso # (Auto) 0.1 Sodium Potassium Chloride Carbon Dioxide Anion Gap BUN Creatinine Est GFR ( Amer) Est GFR (Non-Af Amer) POC Glucose (mg/dL) 75 151 H Random Glucose Calcium Total Bilirubin Direct Bilirubin AST ALT Alkaline Phosphatase Total Protein Albumin Globulin Albumin/Globulin Ratio 08/03/18 08:15 WBC RBC Hgb Hct MCV MCH MCHC RDW Plt Count MPV Neut % (Auto) Lymph % (Auto) [place] % (Auto) Eos % (Auto) Baso % (Auto) Neut # (Auto) Lymph # (Auto) [place] # (Auto) Eos # (Auto) Baso # (Auto) Sodium 137 Potassium 4.0 Chloride 102 Carbon Dioxide 26 Anion Gap 13 BUN 13 Creatinine 0.7 Est GFR ( Amer) > 60 Est GFR (Non-Af Amer) > 60 POC Glucose (mg/dL) Random Glucose 153 H D Calcium 8.7 Total Bilirubin 0.9 Direct Bilirubin 0.0 AST 32 ALT 31 Alkaline Phosphatase 86 Total Protein 6.6 Albumin 4.2 Globulin 2.4 Albumin/Globulin Ratio 1.7 Attending/Attestation - Attestation I have personally seen and examined this patient.: Yes I have fully participated in the care of the patient.: Yes I have reviewed all pertinent clinical information: Yes Notes (Text): 08/03/18 11:25 The pt was seen and examined on 08/02/18, chart reviewed. The findings, assessment and plan, as reflected above, discussed with Dr. Alfonso Bush.
--- NOTE | 2018-08-02 15:00 | CP.PCM.CON ---
History of Present Illness - History of Present Illness History of Present Illness: INFECTIOUS DISEASE CONSULT; PATIENT SEEN 08/02/18. CONSULT TO FOLLOW. DICTATED # [id number]. ANTIBIOTICS ADJUSTED. Past Patient History - Past Medical History & Family History Past Medical History?: Yes - Past Social History Smoking Status: Former Smoker - CARDIAC Hx Hypercholesterolemia: Yes Hx Hypertension: Yes - PULMONARY Hx Respiratory Disorders: No - NEUROLOGICAL Hx Neurological Disorder: Yes (DIABETIC NEUROPATHY) Other/Comment: neuropathy - HEENT Hx HEENT Problems: Yes Hx Cataracts: Yes (RIGHT EYE) - RENAL Hx Chronic Kidney Disease: No - ENDOCRINE/METABOLIC Hx Endocrine Disorders: Yes Hx Diabetes Mellitus Type 2: Yes - HEMATOLOGICAL/ONCOLOGICAL Hx Blood Disorders: No - INTEGUMENTARY Hx Dermatological Problems: No - MUSCULOSKELETAL/RHEUMATOLOGICAL Hx Musculoskeletal Disorders: Yes Hx Back Pain: Yes Hx Falls: Yes Other/Comment: neuropathy - GASTROINTESTINAL Hx Gastrointestinal Disorders: No - GENITOURINARY/GYNECOLOGICAL Hx Genitourinary Disorders: No - PSYCHIATRIC Hx Substance Use: No - SURGICAL HISTORY Hx Surgeries: Yes Hx Cataract Extraction: Yes (RIOL) Hx Musculoskeletal Surgery: Yes (LUMBAR SPINE W MARSHA) - ANESTHESIA Hx Anesthesia: Yes Hx Anesthesia Reactions: No Hx Malignant Hyperthermia: No Meds Home Medications: Home Medication List Medication Instructions Recorded Confirmed Type Pantoprazole Sodium [Protonix] 40 mg PO DAILY #15 ect 08/04/18 Rx Allergies/Adverse Reactions: Allergies Allergy/AdvReac Type Severity Reaction Status Date / Time No Known Allergies Allergy Verified 04/15/17 12:15 - Medications Medications: Current Medications Dextrose (Dextrose 50% Inj) 0 ml IV STAT PRN; Protocol PRN Reason: Hypoglycemia Protocol Dextrose (Glutose 15) 0 gm PO ONCE PRN; Protocol PRN Reason: Hypoglycemia Protocol Enalapril Maleate (Vasotec) 20 mg PO DAILY [facility] Last Admin: 08/02/18 10:22 Dose: 20 mg Enoxaparin Sodium (Lovenox) 40 mg SC DAILY [facility] Last Admin: 08/02/18 10:23 Dose: 40 mg Gabapentin (Neurontin) 300 mg PO TID [facility] Last Admin: 08/02/18 13:23 Dose: 300 mg Glimepiride (Amaryl) 4 mg PO DAILY [facility] Last Admin: 08/02/18 10:23 Dose: 4 mg Glucagon (Glucagen Diagnostic Kit) 0 mg IM STAT PRN; Protocol PRN Reason: Hypoglycemia Protocol Ceftriaxone Sodium 1 gm/ (Sodium Chloride) 100 mls @ 100 mls/hr IVPB DAILY [facility]; Protocol Last Admin: 08/02/18 10:23 Dose: 100 mls/hr Dextrose (Dextrose 5% In Water 1000 Ml) 1,000 mls @ 0 mls/hr IV .Q0M PRN; Protocol PRN Reason: Hypoglycemia Protocol Insulin Glargine (Lantus) [address] [facility] Last Admin: 08/01/18 22:12 Dose: Not Given Insulin Human Regular (Novolin R) 0 unit SC [facility]; Protocol Last Admin: 08/02/18 12:02 Dose: 4 u Metoclopramide HCl (Reglan) 10 mg IVP Q8 [facility] Last Admin: 08/02/18 13:23 Dose: 10 mg Metoprolol Tartrate (Lopressor) 25 mg PO BID [facility] Last Admin: 08/02/18 10:23 Dose: 25 mg Ondansetron HCl (Zofran Inj) 4 mg IVP Q6 PRN PRN Reason: Nausea/Vomiting Last Admin: 08/02/18 02:42 Dose: 4 mg Pantoprazole Sodium (Protonix Inj) 40 mg IVP DAILY [facility] Last Admin: 08/02/18 10:22 Dose: 40 mg Rosuvastatin Calcium (Crestor) [address] [facility] Last Admin: 08/01/18 22:11 Dose: 10 mg Results - Vital Signs Recent Vital Signs: Last Vital Signs Temp 98.9 F 08/02/18 08:21 Pulse 89 08/02/18 13:24 Resp 20 08/02/18 13:24 BP 95/51 L 08/02/18 13:24 Pulse Ox 97 08/02/18 08:21 - Labs Result Diagrams: 08/03/18 08:15 08/03/18 08:15 Labs: Laboratory Results - last 24 hr 08/01/18 08/01/18 08/01/18 16:25 16:42 16:42 WBC 20.6 H D RBC 4.50 Hgb 13.9 Hct 42.8 MCV 95.2 MCH 30.9 MCHC 32.5 L RDW 13.6 Plt Count 249 MPV 10.1 Neut % (Auto) 94.6 H Lymph % (Auto) 2.8 L [place] % (Auto) 2.3 Eos % (Auto) 0.0 Baso % (Auto) 0.3 Neut # (Auto) 19.5 H Lymph # (Auto) 0.6 L [place] # (Auto) 0.5 Eos # (Auto) 0.0 Baso # (Auto) 0.1 Neutrophils % (Manual) 92 H Band Neutrophils % 5 H Lymphocytes % (Manual) 1 L Monocytes % (Manual) 2 Platelet Estimate Normal Microcytosis (manual) Slight Ovalocytes Slight PT INR APTT Sodium 136 Potassium 5.9 H Chloride 102 Carbon Dioxide 18 L Anion Gap 22 H BUN 26 H Creatinine 0.8 Est GFR ( Amer) > 60 Est GFR (Non-Af Amer) > 60 POC Glucose (mg/dL) 319 H Random Glucose 352 H D Calcium 9.6 Total Bilirubin 1.7 H AST 55 H D ALT 11 Alkaline Phosphatase 110 Troponin I 0.0360 NT-Pro-B Natriuret Pep 955 H Total Protein 9.0 H Albumin 5.4 H Globulin 3.6 Albumin/Globulin Ratio 1.5 Urine Color Urine Clarity Urine pH Ur Specific [place] Urine Protein Urine Glucose (UA) Urine Ketones Urine Blood Urine Nitrate Urine Bilirubin Urine Urobilinogen Ur Leukocyte Esterase Urine WBC (Auto) Urine RBC (Auto) Ur Squamous Epith Cells Urine Bacteria Hyaline Casts 08/01/18 08/01/18 08/01/18 16:42 17:34 18:34 WBC RBC Hgb Hct MCV MCH MCHC RDW Plt Count MPV Neut % (Auto) Lymph % (Auto) [place] % (Auto) Eos % (Auto) Baso % (Auto) Neut # (Auto) Lymph # (Auto) [place] # (Auto) Eos # (Auto) Baso # (Auto) Neutrophils % (Manual) Band Neutrophils % Lymphocytes % (Manual) Monocytes % (Manual) Platelet Estimate Microcytosis (manual) Ovalocytes PT 12.1 INR 1.1 APTT 29 Sodium Potassium Chloride Carbon Dioxide Anion Gap BUN Creatinine Est GFR ( Amer) Est GFR (Non-Af Amer) POC Glucose (mg/dL) 331 H Random Glucose Calcium Total Bilirubin AST ALT Alkaline Phosphatase Troponin I NT-Pro-B Natriuret Pep Total Protein Albumin Globulin Albumin/Globulin Ratio Urine Color Yellow Urine Clarity Hazy Urine pH 5.0 Ur Specific [place] 1.023 Urine Protein 2+ H Urine Glucose (UA) 3+ H Urine Ketones 1+ H Urine Blood 1+ H Urine Nitrate Negative Urine Bilirubin Negative Urine Urobilinogen Normal Ur Leukocyte Esterase Trace Urine WBC (Auto) 14 H Urine RBC (Auto) 3 Ur Squamous Epith Cells 5 Urine Bacteria Few H Hyaline Casts 6-10 H 08/01/18 08/01/18 08/02/18 18:56 21:13 07:20 WBC 20.1 H RBC 4.09 Hgb 12.8 Hct 39.3 MCV 96.0 MCH 31.2 H MCHC 32.5 L RDW 13.9 Plt Count 218 MPV 10.6 Neut % (Auto) Lymph % (Auto) [place] % (Auto) Eos % (Auto) Baso % (Auto) Neut # (Auto) Lymph # (Auto) [place] # (Auto) Eos # (Auto) Baso # (Auto) Neutrophils % (Manual) Band Neutrophils % Lymphocytes % (Manual) Monocytes % (Manual) Platelet Estimate Microcytosis (manual) Ovalocytes PT INR APTT Sodium Potassium Chloride Carbon Dioxide Anion Gap BUN Creatinine Est GFR ( Amer) Est GFR (Non-Af Amer) POC Glucose (mg/dL) 125 H 176 H Random Glucose Calcium Total Bilirubin AST ALT Alkaline Phosphatase Troponin I NT-Pro-B Natriuret Pep Total Protein Albumin Globulin Albumin/Globulin Ratio Urine Color Urine Clarity Urine pH Ur Specific [place] Urine Protein Urine Glucose (UA) Urine Ketones Urine Blood Urine Nitrate Urine Bilirubin Urine Urobilinogen Ur Leukocyte Esterase Urine WBC (Auto) Urine RBC (Auto) Ur Squamous Epith Cells Urine Bacteria Hyaline Casts 08/02/18 08/02/18 08/02/18 07:20 07:20 11:11 WBC RBC Hgb Hct MCV MCH MCHC RDW Plt Count MPV Neut % (Auto) Lymph % (Auto) [place] % (Auto) Eos % (Auto) Baso % (Auto) Neut # (Auto) Lymph # (Auto) [place] # (Auto) Eos # (Auto) Baso # (Auto) Neutrophils % (Manual) Band Neutrophils % Lymphocytes % (Manual) Monocytes % (Manual) Platelet Estimate Microcytosis (manual) Ovalocytes PT INR APTT Sodium 137 Potassium 4.4 Chloride 102 Carbon Dioxide 18 L Anion Gap 21 H BUN 29 H Creatinine 0.9 Est GFR ( Amer) > 60 Est GFR (Non-Af Amer) > 60 POC Glucose (mg/dL) 275 H 270 H Random Glucose 274 H D Calcium 9.4 Total Bilirubin 0.6 AST 33 ALT 32 Alkaline Phosphatase 105 Troponin I NT-Pro-B Natriuret Pep Total Protein 7.6 Albumin 4.6 Globulin 3.0 Albumin/Globulin Ratio 1.5 Urine Color Urine Clarity Urine pH Ur Specific [place] Urine Protein Urine Glucose (UA) Urine Ketones Urine Blood Urine Nitrate Urine Bilirubin Urine Urobilinogen Ur Leukocyte Esterase Urine WBC (Auto) Urine RBC (Auto) Ur Squamous Epith Cells Urine Bacteria Hyaline Casts
[2018-08-02] MEDS: Piperacill/Tazo 3.375gm in Dex 3.375 GM/50 ML BAG IVPB SCH ×2 (16:41→22:57)
[2018-08-02] MEDS: (Lantus) Insulin Glargine, Recombinant SC SCH ×2 (21:48→21:51)
[2018-08-03] MEDS: Piperacill/Tazo 3.375gm in Dex 3.375 GM/50 ML BAG IVPB SCH ×3 (06:15→23:08)
[2018-08-03] MEDS: (Novolin R) Insulin Human Regular 100 units/ml vial SC SCH ×4 (08:30→21:33)
[2018-08-03 08:37] LABS: BASO # 0.1 K/uL (0.0-0.2); BASO % 1.3 % (0.0-2.0); EOS # 0.1 K/uL (0.0-0.7); EOS % 0.7 % (0.0-4.0); HEMOGLOBIN 11.8 g/dL (11.0-16.0); LYMPH # 2.3 K/uL (1.0-4.3); LYMPH % 26.1 % (20.0-40.0); MEAN CELL VOLUME 96.6 fL (81.0-99.0); MEAN CORPUSCULAR HGB CONC 33.2 g/dL (33.0-37.0); MEAN PLATELET VOLUME 10.8 fL (7.2-11.7); MONO # 0.7 K/uL (0.0-0.8); MONO % 7.9 % (0.0-10.0); NEUT # 5.6 K/uL (1.8-7.0); RBC 3.69 Mil/uL (3.80-5.20); RED CELL DISTRIBUTION WIDTH 13.7 % (11.5-14.5)
[2018-08-03 08:49] LABS: WHITE BLOOD COUNT 8.7 K/uL (4.8-10.8)
[2018-08-03 08:57] LABS: ALB/GLOB RATIO 1.7 (1.0-2.1); ALBUMIN 4.2 g/dL (3.5-5.0); ALT/SGPT 31 U/L (9-52); AST/SGOT 32 U/L (14-36); BLOOD UREA NITROGEN 13 mg/dL (7-17); CALCIUM 8.7 mg/dl (8.6-10.4)
[2018-08-03 09:10] LABS: GFR NON-AFRICAN AMERICAN > 60
[2018-08-03] MEDS: Enoxaparin 40 mg Syringe SC SCH (10:10)
--- NOTE | 2018-08-03 15:24 | CP.PCM.PN ---
Subjective - Date & Time of Evaluation Date of Evaluation: 08/03/18 Time of Evaluation: 07:00 - Subjective Subjective: PGY5 GI Follow Pt seen and examined bedside Denies any abd pain Denies any nausea and vomiting Denies any fever, chills or diaphoresis ROS: 12 point ROS conducted, neg other than above Objective - Vital Signs/Intake and Output Vital Signs (last 24 hours): Temp Pulse Resp BP Pulse Ox 99.4 F 75 20 106/62 98 08/03/18 00:00 08/03/18 00:00 08/03/18 00:00 08/03/18 10:09 08/03/18 00:00 Intake and Output: 08/03/18 08/03/18 06:59 18:59 Intake Total 250 Balance 250 - Medications Medications: Current Medications Dextrose (Dextrose 50% Inj) 0 ml IV STAT PRN; Protocol PRN Reason: Hypoglycemia Protocol Dextrose (Glutose 15) 0 gm PO ONCE PRN; Protocol PRN Reason: Hypoglycemia Protocol Enalapril Maleate (Vasotec) 20 mg PO DAILY [facility] Last Admin: 08/03/18 10:09 Dose: 20 mg Enoxaparin Sodium (Lovenox) 40 mg SC DAILY [facility] Last Admin: 08/03/18 10:10 Dose: 40 mg Gabapentin (Neurontin) 300 mg PO TID [facility] Last Admin: 08/03/18 13:54 Dose: 300 mg Glimepiride (Amaryl) 4 mg PO DAILY [facility] Last Admin: 08/03/18 10:09 Dose: 4 mg Glucagon (Glucagen Diagnostic Kit) 0 mg IM STAT PRN; Protocol PRN Reason: Hypoglycemia Protocol Dextrose (Dextrose 5% In Water 1000 Ml) 1,000 mls @ 0 mls/hr IV .Q0M PRN; Protocol PRN Reason: Hypoglycemia Protocol Piperacillin Sod/Tazobactam Sod (Zosyn 3.375 Gm Iv Premix) 3.375 gm in 50 mls @ 100 mls/hr IVPB Q8H [facility]; Protocol Last Admin: 08/03/18 14:15 Dose: 100 mls/hr Insulin Glargine (Lantus) 20 unit SC [facility] Last Admin: 08/02/18 21:51 Dose: Not Given Insulin Human Regular (Novolin R) 0 unit SC [facility]; Protocol Last Admin: 08/03/18 11:39 Dose: 2 u Metoclopramide HCl (Reglan) 10 mg IVP Q8 [facility] Last Admin: 08/03/18 13:54 Dose: 10 mg Metoprolol Tartrate (Lopressor) 25 mg PO BID [facility] Last Admin: 08/03/18 10:09 Dose: 25 mg Ondansetron HCl (Zofran Inj) 4 mg IVP Q6 PRN PRN Reason: Nausea/Vomiting Last Admin: 08/02/18 02:42 Dose: 4 mg Pantoprazole Sodium (Protonix Inj) 40 mg IVP DAILY [facility] Last Admin: 08/03/18 10:10 Dose: 40 mg Rosuvastatin Calcium (Crestor) 10 mg PO HS [facility] Last Admin: 08/02/18 21:45 Dose: 10 mg - Labs Labs: 08/03/18 08:15 08/03/18 08:15 PT 12.1 SECONDS (9.7-12.2) 08/01/18 16:42 INR 1.1 08/01/18 16:42 APTT 29 SECONDS (21-34) 08/01/18 16:42 - Constitutional Appears: Non-toxic, No Acute Distress - Head Exam Head Exam: ATRAUMATIC, NORMOCEPHALIC - Eye Exam Eye Exam: Normal appearance - ENT Exam ENT Exam: Mucous Membranes Moist, Normal Exam - Neck Exam Neck Exam: Normal Inspection - Respiratory Exam Respiratory Exam: Clear to Ausculation Bilateral, NORMAL BREATHING PATTERN. absent: Rales, Rhonchi, Wheezes, Respiratory Distress - Cardiovascular Exam Cardiovascular Exam: REGULAR RHYTHM, +S1, +S2 - GI/Abdominal Exam GI & Abdominal Exam: Soft, Normal Bowel Sounds. absent: Distended, Firm, Guarding, Rigid, Tenderness, Organomegaly, Rebound - Extremities Exam Extremities Exam: absent: Joint Swelling, Pedal Edema - Neurological Exam Neurological Exam: Alert, Awake, Oriented x3 - Psychiatric Exam Psychiatric exam: Normal Affect, Normal Mood - Skin Skin Exam: Dry, Intact, Normal Color, Warm Assessment and Plan - Assessment and Plan (Free Text) Assessment: Rubi York is a 67F w/ hx of DM, HTN, Hl who presented with elevated BP, nausea and vomting. CT revealed gastric wall thickening. Intractable Nausea and Vomiting (resolved) Gastric Wall Thickening? on CT; DDx underdistention, PUD, gastritis, mass Accelerated HTN Hyperglycemia Diverticulosis Plan: -control HTN and glucose -zofran PRN -recommend protonix 40mg Po daily -advance to diabetic diet as tolerated -recommend colonoscopy and EGD for evaluation of weightloss and CT, pt understands the importance and notes that she will follow-up with GI as an oupt D/w Dr. Collado
[2018-08-03 17:57] LABS: AMYLASE 91 U/L (30-110); LIPASE 90 U/L (23-300)
--- NOTE | 2018-08-03 19:12 | PN ---
DATE: 08/03/[address] Sharan Chester. SUBJECTIVE: The patient has started to eat regular diet today, abdominal pain and nausea improved. PHYSICAL EXAMINATION: VITAL SIGNS: Blood pressure 106/62, hear rate 75, temperature 99.4, respirations 20. HEENT: Normocephalic. CHEST: Clear. HEART: Sounds regular. EXTREMITIES: No edema. LABORATORY DATA: Today's SMA-7 is within normal limits except for glucose of 153. are within normal limits. The patient's hemoglobin and hematocrit, white count and platelet count are within normal limits. Abdominal and pelvic CT scan fatty hepatic infiltration. Stomach had completely distended, in parts accounts for appearance, however, gastritis is not excluded. Enlarged nodular appearing adrenal gland. Chest x-ray, hyperinflation, gross normal COPD. EKG revealed sinus tachycardia at rate 109, biatrial enlargement. Blood cultures negative after 24 hours. ASSESSMENT: 1. Uncontrolled hypertension. 2. Abdominal pain and nausea and vomiting. 3. Progressive recent loss of weight. PLAN: Continue Amaryl 4 mg once a day, Crestor 10 mg once a day, Lantus insulin 20 units subcutaneously at bedtime, Lopressor 25 mg once a day, Lovenox 40 mg subcutaneous once a day, Reglan 10 mg intravenously every 8 hours, Protonix 40 mg intravenously daily, Lasix 20 mg daily, Zosyn 3.375 g intravenously every 8 hours. The patient will be evaluated by beauty operator apprentice. In the meantime, I will obtain serum amylase and lipase levels. Vin Guajardo MD
--- NOTE | 2018-08-03 19:52 | CP.PCM.HP ---
Present on Admission - Present on Admission Any Indicators Present on Admission: Yes History of Uncontrolled Diabetes: Yes Past Patient History - Past Medical History & Family History Past Medical History?: Yes - Past Social History Smoking Status: Former Smoker - CARDIAC Hx Hypercholesterolemia: Yes Hx Hypertension: Yes - PULMONARY Hx Respiratory Disorders: No - NEUROLOGICAL Hx Neurological Disorder: Yes (DIABETIC NEUROPATHY) Other/Comment: neuropathy - HEENT Hx HEENT Problems: Yes Hx Cataracts: Yes (RIGHT EYE) - RENAL Hx Chronic Kidney Disease: No - ENDOCRINE/METABOLIC Hx Endocrine Disorders: Yes Hx Diabetes Mellitus Type 2: Yes - HEMATOLOGICAL/ONCOLOGICAL Hx Blood Disorders: No - INTEGUMENTARY Hx Dermatological Problems: No - MUSCULOSKELETAL/RHEUMATOLOGICAL Hx Musculoskeletal Disorders: Yes Hx Back Pain: Yes Hx Falls: Yes Other/Comment: neuropathy - GASTROINTESTINAL Hx Gastrointestinal Disorders: No - GENITOURINARY/GYNECOLOGICAL Hx Genitourinary Disorders: No - PSYCHIATRIC Hx Substance Use: No - SURGICAL HISTORY Hx Surgeries: Yes Hx Cataract Extraction: Yes (RIOL) Hx Musculoskeletal Surgery: Yes (LUMBAR SPINE W MARSHA) - ANESTHESIA Hx Anesthesia: Yes Hx Anesthesia Reactions: No Hx Malignant Hyperthermia: No Meds Allergies/Adverse Reactions: Allergies Allergy/AdvReac Type Severity Reaction Status Date / Time No Known Allergies Allergy Verified 04/15/17 12:15 Results - Vital Signs Recent Vital Signs: Last Vital Signs Temp 98.6 F 08/03/18 16:11 Pulse 73 08/03/18 16:11 Resp 20 08/03/18 16:11 BP 128/75 08/03/18 17:33 Pulse Ox 99 08/03/18 16:11 - Labs Result Diagrams: 08/03/18 08:15 08/03/18 08:15 Labs: Laboratory Results - last 24 hr 08/02/18 08/03/18 08/03/18 21:13 07:25 08:15 WBC 8.7 D RBC 3.69 L Hgb 11.8 Hct 35.7 MCV 96.6 MCH 32.0 H MCHC 33.2 RDW 13.7 Plt Count 207 MPV 10.8 Neut % (Auto) 64.0 Lymph % (Auto) 26.1 [place] % (Auto) 7.9 Eos % (Auto) 0.7 Baso % (Auto) 1.3 Neut # (Auto) 5.6 Lymph # (Auto) 2.3 [place] # (Auto) 0.7 Eos # (Auto) 0.1 Baso # (Auto) 0.1 Sodium Potassium Chloride Carbon Dioxide Anion Gap BUN Creatinine Est GFR ( Amer) Est GFR (Non-Af Amer) POC Glucose (mg/dL) 151 H 169 H Random Glucose Calcium Total Bilirubin Direct Bilirubin AST ALT Alkaline Phosphatase Total Protein Albumin Globulin Albumin/Globulin Ratio Amylase Lipase 08/03/18 08/03/18 08/03/18 08:15 08:15 11:11 WBC RBC Hgb Hct MCV MCH MCHC RDW Plt Count MPV Neut % (Auto) Lymph % (Auto) [place] % (Auto) Eos % (Auto) Baso % (Auto) Neut # (Auto) Lymph # (Auto) [place] # (Auto) Eos # (Auto) Baso # (Auto) Sodium 137 Potassium 4.0 Chloride 102 Carbon Dioxide 26 Anion Gap 13 BUN 13 Creatinine 0.7 Est GFR ( Amer) > 60 Est GFR (Non-Af Amer) > 60 POC Glucose (mg/dL) 184 H Random Glucose 153 H D Calcium 8.7 Total Bilirubin 0.9 Direct Bilirubin 0.0 AST 32 ALT 31 Alkaline Phosphatase 86 Total Protein 6.6 Albumin 4.2 Globulin 2.4 Albumin/Globulin Ratio 1.7 Amylase 91 Lipase 90 08/03/18 16:29 WBC RBC Hgb Hct MCV MCH MCHC RDW Plt Count MPV Neut % (Auto) Lymph % (Auto) [place] % (Auto) Eos % (Auto) Baso % (Auto) Neut # (Auto) Lymph # (Auto) [place] # (Auto) Eos # (Auto) Baso # (Auto) Sodium Potassium Chloride Carbon Dioxide Anion Gap BUN Creatinine Est GFR ( Amer) Est GFR (Non-Af Amer) POC Glucose (mg/dL) 146 H Random Glucose Calcium Total Bilirubin Direct Bilirubin AST ALT Alkaline Phosphatase Total Protein Albumin Globulin Albumin/Globulin Ratio Amylase Lipase
[2018-08-03] MEDS: (Lantus) Insulin Glargine, Recombinant SC SCH (21:43)
--- NOTE | 2018-08-04 05:02 | HP ---
CHIEF COMPLAINT: Dizziness, headache x1 day. HISTORY OF PRESENT ILLNESS: This is a 67-year-old female well known to me with history of type 2 diabetes, on insulin antidiabetic medication; hypertension; hyperlipidemia; peripheral neuropathy. She is a smoker. She is compliant with diet, medications and follow up. Recently, the patient was seen by me in the office with a low blood sugar, and her insulin dosage was reduced. The patient has been on lower doses of insulin until today she came to emergency room because of generalized weakness, headache, dizziness, nausea, and vomiting. According to her, she feels headache. She feels off balance. She feels that she has spinning. She has nausea. She also has some nonspecific abdominal pain. She denies any vomiting. She denies any constipation, diarrhea, hematemesis, melena, or hematochezia. She denies any hemoptysis. She has cough. No fever. No chills. She denies any joint pain. She has tingling and numbness in the feet. She denies any sneezing, itchy eyes, itchy nose. She denies any chest pain. ALLERGIES: UNKNOWN ALLERGIES. MEDICATIONS: Current medications are at home: She is on insulin, ramipril, Zofran, glimepiride, Neurontin, and Lipitor. SOCIAL HISTORY: She smokes. She denies drinking. PAST MEDICAL HISTORY: Type 2 diabetes, neuropathy, hypertension. PHYSICAL EXAMINATION: GENERAL: An elderly female, in distress with nausea, vomiting, and headache. VITAL SIGNS: Blood pressure 187/107, pulse 88, respiratory rate 20, temperature 99. SKIN: Dry, poor turgor. HEENT: Head is atraumatic and normocephalic. Negative pallor. Negative jaundice. Extraocular movements are intact. NECK: Supple. No JVD. No lymph node. No thyromegaly. No carotid bruits. CHEST WALL: Bilateral symmetrical expansion. No tenderness. No deformity. BREASTS: No masses. No nipple discharge. LUNGS: Clear. No rales. No rhonchi. CARDIOVASCULAR SYSTEM: S1 and S2 plus S4 positive. No heave. No thrill. ABDOMEN: Soft. Diffused tenderness. No guarding. No rigidity. No rebound. Bowel sounds are exaggerated. No masses. No visceromegaly. RECTAL: No masses. No active bleed. EXTREMITIES: No clubbing, cyanosis or edema. CENTRAL NERVOUS SYSTEM: The patient is awake,alert and oriented x3. Decreased proprioception and vibration in the feet. ASSESSMENT: 1. Uncontrolled diabetes. 2. Uncontrolled hypertension. 3. Dehydration. 4. Rule out septicemia. The patient has elevated white blood cell count. PLAN: Admit. Detailed orders are written. Seen and examined. Sharan Chester MD
[2018-08-04] MEDS: Piperacill/Tazo 3.375gm in Dex 3.375 GM/50 ML BAG IVPB SCH ×2 (06:31→14:49)
[2018-08-04] MEDS: (Novolin R) Insulin Human Regular 100 units/ml vial SC SCH ×3 (07:50→17:06)
[2018-08-04] MEDS: Enoxaparin 40 mg Syringe SC SCH (09:34)
[2018-08-04] MEDS ORDERED: Lactated Ringer's 1,000 ML IV ONE (11:15)
[2018-08-04] MEDS ORDERED: Midazolam 2 MG/2 ML VIAL ONE (11:19)
[2018-08-04] MEDS ORDERED: Propofol 10 mg/ml Inj (20 ML) ONE (11:19)
[2018-08-04] MEDS ORDERED: Lidocaine Hydrochloride 5 ML INJ ONE (11:20)
[2018-08-04 11:53] VITALS: O2SAT 100
--- NOTE | 2018-08-04 12:56 | CARD ---
APPROVED REPORT Date of service: 08/01/2018 EKG Measurement Heart [id number] <Conclusion> Sinus tachycardia Biatrial enlargement Abnormal ECG
[2018-08-04] MEDS ORDERED: Peg-Electrolyte Oral Soln 4L (Golytely) PO ONE (13:00)
[2018-08-04 16:07] VITALS: PULSE 63; RESP 20; TEMP 97.9
[2018-08-04] MEDS ORDERED: Bisacodyl 5mg EC Tab PO ONE (17:00)
[2018-08-04 17:07] VITALS: BP 135/80
--- NOTE | 2018-08-04 17:56 | CP.PCM.PN ---
Objective - Vital Signs/Intake and Output Vital Signs (last 24 hours): Temp Pulse Resp BP Pulse Ox 97.9 F 63 20 135/80 100 08/04/18 16:00 08/04/18 16:00 08/04/18 16:00 08/04/18 17:05 08/04/18 16:00 Intake and Output: 08/04/18 08/04/18 06:59 18:59 Intake Total 350 Balance 350 - Medications Medications: Current Medications Dextrose (Dextrose 50% Inj) 0 ml IV STAT PRN; Protocol PRN Reason: Hypoglycemia Protocol Dextrose (Glutose 15) 0 gm PO ONCE PRN; Protocol PRN Reason: Hypoglycemia Protocol Enalapril Maleate (Vasotec) 20 mg PO DAILY [facility] Last Admin: 08/04/18 09:30 Dose: 20 mg Enoxaparin Sodium (Lovenox) 40 mg SC DAILY [facility] Last Admin: 08/04/18 09:34 Dose: Not Given Gabapentin (Neurontin) 300 mg PO TID [facility] Last Admin: 08/04/18 17:05 Dose: 300 mg Glimepiride (Amaryl) 4 mg PO DAILY [facility] Last Admin: 08/04/18 09:34 Dose: Not Given Glucagon (Glucagen Diagnostic Kit) 0 mg IM STAT PRN; Protocol PRN Reason: Hypoglycemia Protocol Dextrose (Dextrose 5% In Water 1000 Ml) 1,000 mls @ 0 mls/hr IV .Q0M PRN; Protocol PRN Reason: Hypoglycemia Protocol Piperacillin Sod/Tazobactam Sod (Zosyn 3.375 Gm Iv Premix) 3.375 gm in 50 mls @ 100 mls/hr IVPB Q8H [facility]; Protocol Last Admin: 08/04/18 14:49 Dose: 100 mls/hr Insulin Glargine (Lantus) 20 unit SC HS [facility] Last Admin: 08/03/18 21:43 Dose: Not Given Insulin Human Regular (Novolin R) 0 unit SC [facility]; Protocol Last Admin: 08/04/18 17:06 Dose: 4 u Metoclopramide HCl (Reglan) 5 mg IVP Q6H [facility] Stop: 08/06/18 11:31 Last Admin: 08/04/18 17:07 Dose: 5 mg Metoprolol Tartrate (Lopressor) 25 mg PO BID [facility] Last Admin: 08/04/18 17:05 Dose: 25 mg Ondansetron HCl (Zofran Inj) 4 mg IVP Q6 PRN PRN Reason: Nausea/Vomiting Last Admin: 08/02/18 02:42 Dose: 4 mg Pantoprazole Sodium (Protonix Inj) 40 mg IVP DAILY [facility] Last Admin: 08/04/18 09:31 Dose: 40 mg Rosuvastatin Calcium (Crestor) 10 mg PO HS [facility] Last Admin: 08/03/18 21:32 Dose: 10 mg - Labs Labs: 08/03/18 08:15 08/03/18 08:15 PT 12.1 SECONDS (9.7-12.2) 08/01/18 16:42 INR 1.1 08/01/18 16:42 APTT 29 SECONDS (21-34) 08/01/18 16:42 Assessment and Plan - Assessment and Plan (Free Text) Assessment: 67 YEAR OLD FEMALE admitted with vomiting, abdominal pain, s/p endoscopy, seen and examined. Alert and orientedx3, ambulatory no acute pain or distress. Discussed with DR Chester, plan to discharge home today. Advised to follow up in the office in 1 week.
--- NOTE | 2018-08-04 18:53 | CP.PCM.PN ---
Subjective - Date & Time of Evaluation Date of Evaluation: 08/04/18 Time of Evaluation: 18:52 - Subjective Subjective: CHIEF COMPLAINTS TODAY : afebrile s/p endoscopy today s/p multiple biopsies. presently denies any nausea, vomiting .States she ate her food. ROS. HEENT : N. Resp : No SOB wheezing, cough Cardio : No CP, PND orthopnea GI : No abd. Pain, n/v THEATRICAL DRESSER : No headache , focal deficit. Musculoskel : N Ext. : Pedal pulses intact, no edema or calf pain Derm : N Psych : N. PE. Pt. is alert awake in no distress. V.S As noted in the chart Head ,ear nose,throat and eyes : Normal. Neck : Supple with normal carotids. Lungs: Clear air entry. Heart : S1 & S2 normal . . No murmur. S4 + Abd : Soft non tender with normal bowel sounds. Neuro : Moves all ext. with no localized deficit. Ext : No edema with intact pulses. Neg. calf tenderness Derm : No rashes or decubitus ulcer. Radiology/Labs . WBC 8.7 H&H 11.8 and 35.7 .Renal functions normal lfts normal. BLOOD CULTURES NEGATIVE TO DATE uRINE CULTURES 10,000-50,000 ORGANISMS PER Ml? CONTAMINANT. Asssessment : -leukocytosis-RESOLVED -Intractable vomiting/gastritis s/p EGD./BX -WEIGHT LOSS/POOR APPETITE R/O MALIGNANCY. -GASTRIC WALL THICKENING R/O OCCULT MALIGNANCY VS MASS - ACCELERATED HYPERTENSION. - UNCONTROLLED DIABETES MELLITUS Plan : DC iv ZOSYN. PATIENT TOLERATING FOOD. fOLLOW-UP BIOPSIES PER GI. PATIENT STATES SHE IS BEING TOLD THAT GI WILL FOLLOW OUTPATIENT FOR COLONOSCOPY. FOLLOW-UP PER pmd. Objective - Vital Signs/Intake and Output Vital Signs (last 24 hours): Temp Pulse Resp BP Pulse Ox 97.9 F 63 20 135/80 100 08/04/18 16:00 08/04/18 16:00 08/04/18 16:00 08/04/18 17:05 08/04/18 16:00 Intake and Output: 08/04/18 08/04/18 06:59 18:59 Intake Total 350 Balance 350 - Labs Labs: 08/03/18 08:15 08/03/18 08:15 PT 12.1 SECONDS (9.7-12.2) 08/01/18 16:42 INR 1.1 08/01/18 16:42 APTT 29 SECONDS (21-34) 08/01/18 16:42
--- NOTE | 2018-08-05 05:10 | CON ---
DATE: 08/02/2018 INFECTIOUS DISEASE CONSULTATION REQUESTED BY: Sharan Chester MD REASON FOR CONSULTATION: Uncontrolled hypertension, diabetes, and gastritis or gastroenteritis. HISTORY OF PRESENT ILLNESS: The patient is a 67-year-old female with history of hypertension, hypercholesterolemia, insulin-dependent diabetes mellitus who was admitted on 08/01/2018 because of intractable vomiting. The patient on admission was found to have a blood pressure of 187/112. The patient states she was unable to take her blood pressure medications due to her vomiting. The patient has been saying that she was in the ER for the same, and the recent visit was 06/04/2018. The patient was also found to have leukocytosis of 20.1. The patient was appropriately cultured and started on IV antibiotics including ceftriaxone 1 g once a day daily. Infectious disease consultation was requested by private MD because of leukocytosis and possible gastroenteritis. The patient denied any fever or chills. Denied any diaphoresis. Denies any recent travel or sick contacts. She states her vomitus was nonbloody and was slightly bilious. The patient denies any such symptoms before and also denies history of reflux. As noted, she has noticed that her appetite has been poor recently and has lost about 15-pound weight loss in the last three months. PAST MEDICAL HISTORY: Hypertension, diabetes mellitus, and hyperlipidemia. PAST SURGICAL HISTORY: Unremarkable except for back surgery. SOCIAL HISTORY: She is a smoker, smokes about half pack for 20 years. Denies use of elicit drugs or ethanol. FAMILY HISTORY: Unremarkable. Denies any history of GI related malignancy or cancer in the family. REVIEW OF SYSTEMS: RESPIRATORY: Denies any cough or expectoration. CARDIOVASCULAR: Denies any chest pain or palpitation. GASTROINTESTINAL: As noted above as per History and Physical, intractable vomiting. Unable to take any blood pressure pills also. Denies any diarrhea or obstipation. She states she has colonoscopy done in 2014 and had internal hemorrhoids and left-sided colitis as reported. The scope was done by Dr. Billy as reported by the patient. GENITOURINARY: Unremarkable. Denies any dysuria or hematuria. CENTRAL NERVOUS SYSTEM: Did complain of headache and vomiting. MEDICATIONS: As per chart reviewed, presently on ceftriaxone 1 g once a day daily. Rest of the medications as per chart, she is on Neurontin 300 mg p.o. t.i.d., Amaryl 4 mg p.o. daily, glucagon and insulin coverage glargine Lantus 20 units subcu at bedtime daily, metoprolol (Lopressor) 25 mg p.o. b.i.d. She was also started on Reglan 10 mg IV every 8 hours by GI, Protonix 40 mg once daily and Crestor 10 mg p.o. at bedtime. PHYSICAL EXAMINATION: GENERAL: The patient is awake, alert, not in any acute distress at present. VITAL SIGNS: Presently afebrile. Blood pressure is better controlled and on admission 197/87, respirations 20, pulse of 99, afebrile, pulse ox is 97%. HEENT: Pupils equal reactive to light and accommodation. Extraocular movements are full. Fundus negative. Sclerae nonicteric. Conjunctivae normal. JVP not elevated. NECK: Appears to be supple. LUNGS: Fair air entry. CARDIOVASCULAR SYSTEM: S1 and S2, regular. No murmur or gallop. ABDOMEN: Bowel sounds are present. Abdomen is soft, nondistended. No organomegaly appreciated. No tenderness elicited. EXTREMITIES: No cyanosis, clubbing, or edema. CENTRAL NERVOUS SYSTEM: No gross deficits. Moves all extremities. Reflexes are equal and symmetrical. Babinski's downgoing. SKIN: No rashes. Normal color. LABORATORY DATA: WBC 20.1, H and H of 12.8 and 39.3, platelets 218. Creatinine 0.9, BUN of 29, blood sugar 274. Chest x-ray on admission was unremarkable. Liver function tests: Bilirubin 1.7, AST 55, ALT 11, ProBNP is 955, albumin is normal of 5.4. UA, pending. CT of the abdomen and pelvis with p.o. and IV contrast shows fatty hepatic infiltration, stomach slightly distended, thick walled stomach consistent with gastritis versus mass etc. IMPRESSION: 1. Leukocytosis. 2. Gastroenteritis with intractable vomiting and nausea. 3. Gastric wall thickening on CT scan, rule out occult malignancy, lymphoma versus gastritis. 4. Accelerated hypertension. 5. Uncontrolled diabetes mellitus. 6. History of diverticulosis. PLAN: Suggest men[place] cultures. Discontinue IV ceftriaxone. We will start her on Zosyn 3.375 g every 8 hourly for now for better gram-positive and gram-negative and enterococcus coverage. Follow up CBCs with differential. GI on the case. Planning to do endoscopy and colonoscopy as reported. Reglan has been placed as per GI. We will follow along with you and follow up blood cultures and urine cultures as ordered. Thank you very much for allowing me to participate in the care of your patient. We will follow up with you. Sharon Lopez MD
--- NOTE | 2018-08-05 07:42 | CP.PCM.DIS ---
Provider - Provider Date of Admission: 08/01/18 17:51 Attending physician: Sharan Chester MD Consults: 08/01/18 21:37 Infectious Disease Consult Routine Comment: high WBC Consulting Provider: Sharon Lopze Consulting Physician: Sharon Lopez Reason for Consult: High WBC 08/02/18 03:35 Gastroenterology Consult Routine Comment: Consulting Provider: Jami Billy Consulting Physician: Jami Billy Reason for Consult: abd pain, nausea, vomiting Time Spent in preparation of Discharge (in minutes): 30 Hospital Course - Lab Results Lab Results: Micro Results 08/01/18 22:00 Blood Blood Culture - Preliminary NO GROWTH AFTER 3 DAYS 08/01/18 21:30 Blood Blood Culture - Preliminary NO GROWTH AFTER 3 DAYS 08/02/18 06:12 Urine,Clean Catch Urine Culture - Final 10-50,000 CFU/ML. MULTIPLE SPECIES. PROBABLE CONTAMINATION. Most Recent Lab Values WBC 8.7 K/uL (4.8-10.8) D 08/03/18 08:15 RBC 3.69 Mil/uL (3.80-5.20) L 08/03/18 08:15 Hgb 11.8 g/dL (11.0-16.0) 08/03/18 08:15 Hct 35.7 % (34.0-47.0) 08/03/18 08:15 MCV 96.6 fL (81.0-99.0) 08/03/18 08:15 MCH 32.0 pg (27.0-31.0) H 08/03/18 08:15 MCHC 33.2 g/dL (33.0-37.0) 08/03/18 08:15 RDW 13.7 % (11.5-14.5) 08/03/18 08:15 Plt Count 207 K/uL (130-400) 08/03/18 08:15 MPV 10.8 fL (7.2-11.7) 08/03/18 08:15 Neut % (Auto) 64.0 % (50.0-75.0) 08/03/18 08:15 Lymph % (Auto) 26.1 % (20.0-40.0) 08/03/18 08:15 [place] % (Auto) 7.9 % (0.0-10.0) 08/03/18 08:15 Eos % (Auto) 0.7 % (0.0-4.0) 08/03/18 08:15 Baso % (Auto) 1.3 % (0.0-2.0) 08/03/18 08:15 Neut # (Auto) 5.6 K/uL (1.8-7.0) 08/03/18 08:15 Lymph # (Auto) 2.3 K/uL (1.0-4.3) 08/03/18 08:15 [place] # (Auto) 0.7 K/uL (0.0-0.8) 08/03/18 08:15 Eos # (Auto) 0.1 K/uL (0.0-0.7) 08/03/18 08:15 Baso # (Auto) 0.1 K/uL (0.0-0.2) 08/03/18 08:15 Neutrophils % (Manual) 92 % (50-75) H 08/01/18 16:42 Band Neutrophils % 5 % (0-2) H 08/01/18 16:42 Lymphocytes % (Manual) 1 % (20-40) L 08/01/18 16:42 Monocytes % (Manual) 2 % (0-10) 08/01/18 16:42 Platelet Estimate Normal (NORMAL) 08/01/18 16:42 Microcytosis (manual) Slight 08/01/18 16:42 Ovalocytes Slight 08/01/18 16:42 PT 12.1 SECONDS (9.7-12.2) 08/01/18 16:42 INR 1.1 08/01/18 16:42 APTT 29 SECONDS (21-34) 08/01/18 16:42 Sodium 137 mmol/L (132-148) 08/03/18 08:15 Potassium 4.0 mmol/L (3.6-5.2) 08/03/18 08:15 Chloride 102 mmol/L (98-107) 08/03/18 08:15 Carbon Dioxide 26 mmol/L (22-30) 08/03/18 08:15 Anion Gap 13 (10-20) 08/03/18 08:15 BUN 13 mg/dL (7-17) 08/03/18 08:15 Creatinine 0.7 mg/dL (0.7-1.2) 08/03/18 08:15 Est GFR ( Amer) > 60 08/03/18 08:15 Est GFR (Non-Af Amer) > 60 08/03/18 08:15 POC Glucose (mg/dL) 281 mg/dL (65-110) H 08/04/18 16:57 Random Glucose 153 mg/dL (65-105) H D 08/03/18 08:15 Calcium 8.7 mg/dl (8.6-10.4) 08/03/18 08:15 Total Bilirubin 0.9 mg/dL (0.2-1.3) 08/03/18 08:15 Direct Bilirubin 0.0 mg/dL (0.0-0.4) 08/03/18 08:15 AST 32 U/L (14-36) 08/03/18 08:15 ALT 31 U/L (9-52) 08/03/18 08:15 Alkaline Phosphatase 86 U/L (38-126) 08/03/18 08:15 Troponin I 0.0360 ng/mL (0.00-0.120) 08/01/18 16:42 NT-Pro-B Natriuret Pep 955 pg/mL (0-900) H 08/01/18 16:42 Total Protein 6.6 g/dL (6.3-8.3) 08/03/18 08:15 Albumin 4.2 g/dL (3.5-5.0) 08/03/18 08:15 Globulin 2.4 gm/dL (2.2-3.9) 08/03/18 08:15 Albumin/Globulin Ratio 1.7 (1.0-2.1) 08/03/18 08:15 Amylase 91 U/L (30-110) 08/03/18 08:15 Lipase 90 U/L (23-300) 08/03/18 08:15 Urine Color Yellow (YELLOW) 08/01/18 18:34 Urine Clarity Hazy (Clear) 08/01/18 18:34 Urine pH 5.0 (5.0-8.0) 08/01/18 18:34 Ur Specific [place] 1.023 (1.003-1.030) 08/01/18 18:34 Urine Protein 2+ mg/dL (NEGATIVE) H 08/01/18 18:34 Urine Glucose (UA) 3+ mg/dL (Normal) H 08/01/18 18:34 Urine Ketones 1+ mg/dL (NEGATIVE) H 08/01/18 18:34 Urine Blood 1+ (NEGATIVE) H 08/01/18 18:34 Urine Nitrate Negative (NEGATIVE) 08/01/18 18:34 Urine Bilirubin Negative (NEGATIVE) 08/01/18 18:34 Urine Urobilinogen Normal mg/dL (0.2-1.0) 08/01/18 18:34 Ur Leukocyte Esterase Trace Cristina/uL (Negative) 08/01/18 18:34 Urine WBC (Auto) 14 /hpf (0-5) H 08/01/18 18:34 Urine RBC (Auto) 3 /hpf (0-3) 08/01/18 18:34 Ur Squamous Epith Cells 5 /hpf (0-5) 08/01/18 18:34 Urine Bacteria Few (<OCC) H 08/01/18 18:34 Hyaline Casts 6-10 /lpf (0-2) H 08/01/18 18:34 Discharge Exam - Head Exam Head Exam: ATRAUMATIC, NORMOCEPHALIC Discharge Plan - Discharge Medications Prescriptions: Pantoprazole Sodium [Protonix] 40 mg PO DAILY #15 ect - Follow Up Plan Condition: GOOD Disposition: HOME/ ROUTINE Instructions: Nausea and Vomiting, Adult (DC), Pantoprazole, Diabetic Hyperglycemia (DC) Additional Instructions: FOLLOW UP WITH pmd IN 1 WEEK FOLLOW UP WITH GI FOR OUTPATIENT COLONOSCOPY ADVANCE DIET SLOWLY Referrals: Jami Billy [Staff Provider] - Sharan Chester MD [Staff Provider] -
--- NOTE | 2018-08-05 21:46 | DS ---
DISCHARGE DIAGNOSES: 1. Poorly controlled diabetes. 2. Gastroenteritis. 3. Dehydration. 4. Hypertension. HOSPITAL COURSE: This is a 67-year-old female, well known to me, with history of type 2 diabetes, hypertension, hyperlipidemia, peripheral neuropathy, who came in because of generalized weakness, polyuria, polydipsia, and polyphagia. Recently, her insulin dosage was reduced because of poorly controlled diabetes. The patient has been noncompliant since then for insulin, and she came in because of weakness, polyuria, polydipsia, and polyphagia. WBC count was 20,000 upon admission. She was started on antibiotics. Insulin regimen was adjusted, and she felt better. The patient is for discharge. Condition upon discharge is stable. Blood pressure 135/80, pulse 63, respiratory rate 20, and temperature 97.9. WBC 20.6. went down to 8.7; hemoglobin 11.7; hematocrit 35.7; and platelets 207. She will be followed up as outpatient. Sharan Chester MD
== END 2018-08-04 18:05 | disposition home or self-care (01) | DRG 392 ==
LOC: C.ER 16:11 → C.3T 17:51
PROVIDERS: ADMIT Internal Medicine; ATTEND Internal Medicine
PROC: 0DB68ZX Excision of Stomach, Via Natural or Artificial Opening Endoscopic, Diagnostic (ICD-10-PCS; 2018-08-04)
PROC: 0DB58ZX Excision of Esophagus, Via Natural or Artificial Opening Endoscopic, Diagnostic (ICD-10-PCS; principal; 2018-08-04 11:15)
DX: K52.9 Noninfective gastroenteritis and colitis, unspecified (principal); E86.0 Dehydration; E11.65 Type 2 diabetes mellitus with hyperglycemia; K21.9 Gastro-esophageal reflux disease without esophagitis; K29.50 Unspecified chronic gastritis without bleeding; E78.00 Pure hypercholesterolemia, unspecified; E11.40 Type 2 diabetes mellitus with diabetic neuropathy, unspecified; F17.210 Nicotine dependence, cigarettes, uncomplicated; I10 Essential (primary) hypertension; K57.90 Diverticulosis of intestine, part unspecified, without perforation or abscess without bleeding; Z91.14 Patient's other noncompliance with medication regimen; Z79.4 Long term (current) use of insulin; J44.9 Chronic obstructive pulmonary disease, unspecified; R00.0 Tachycardia, unspecified; R63.4 Abnormal weight loss

== ENCOUNTER 2018-09-21 14:52 | Observation (INO) | payer OTHER ==
[2018-09-21 15:56] LABS: BASO # 0.1 K/uL (0.0-0.2); BASO % 0.4 % (0.0-2.0); HEMOGLOBIN 13.6 g/dL (11.0-16.0); LYMPH # 0.5 K/uL (1.0-4.3); LYMPH % 4.4 % (20.0-40.0); MEAN CORPUSCULAR HGB CONC 33.7 g/dL (33.0-37.0); MEAN PLATELET VOLUME 10.9 fL (7.2-11.7); MONO # 0.3 K/uL (0.0-0.8); NEUT # 10.7 K/uL (1.8-7.0); NEUT % 92.2 % (50.0-75.0); PLATELET COUNT 200 K/uL (130-400); RBC 4.25 Mil/uL (3.80-5.20); RED CELL DISTRIBUTION WIDTH 14.4 % (11.5-14.5); WHITE BLOOD COUNT 11.6 K/uL (4.8-10.8)
[2018-09-21] MEDS ORDERED: Labetalol 25mg/5ml Syringe IVP STA (16:02)
[2018-09-21] MEDS: Sodium Chloride 0.9% 1,000 ML IV SCH ×2 (16:05→19:14)
[2018-09-21 16:08] LABS: ALB/GLOB RATIO 1.5 (1.0-2.1); ALBUMIN 4.7 g/dL (3.5-5.0); ALT/SGPT 21 U/L (9-52); AST/SGOT 27 U/L (14-36); BLOOD UREA NITROGEN 25 mg/dL (7-17); CALCIUM 9.6 mg/dl (8.6-10.4); GFR NON-AFRICAN AMERICAN > 60; LIPASE 35 U/L (23-300)
[2018-09-21] MEDS ORDERED: Labetalol 5mg/ml (4ml) ONE (16:12)
--- NOTE | 2018-09-21 16:13 | C.PDOC ---
History Of Present Illness 67-year-old female presents to the emergency department with complaints of nausea and epigastric discomfort since yesterday. Patient reports a history of diabetes and hypertension. Patient also reports multiple episodes of nausea and vomiting over the last year, patient states she was recently admitted at [facility]. She denies blood in the vomit, diarrhea, and chest pain. Time Seen by Provider: 09/21/18 14:54 Chief Complaint (Nursing): Abdominal Pain History Per: Patient History/Exam Limitations: no limitations Onset/Duration Of Symptoms: Days (1) Current Symptoms Are (Timing): Still Present Location Of Pain/Discomfort: Epigastric Quality Of Discomfort: "Pain" Associated Symptoms: Nausea. denies: Vomiting, Chest Pain, Other (blood in vomit) Past Medical History Reviewed: Historical Data, Nursing Documentation, Vital Signs Vital Signs: Last Vital Signs Temp 99.1 F 09/21/18 15:06 Pulse 118 H 09/21/18 16:08 Resp 16 09/21/18 16:08 BP 215/99 H 09/21/18 16:08 Pulse Ox 99 09/21/18 16:08 - Medical History PMH: HTN, Hypercholesterolemia Denies: Chronic Kidney Disease Surgical History: Back Surgery (lumbar) - [facility] Procedures CONTRAST ARTERIOGRAM-LEG (05/04/14) EXCISION OF ESOPHAGUS, ENDO, DIAGN (08/01/18) EXCISION OF STOMACH, ENDO, DIAGN (08/01/18) Family History: States: No Known Family Hx - Social History Hx Alcohol Use: No Hx Substance Use: No - Immunization History Hx Tetanus Toxoid Vaccination: No Hx Influenza Vaccination: Yes Hx Pneumococcal Vaccination: No Review Of Systems Except As Marked, All Systems Reviewed And Found Negative. Constitutional: Negative for: Fever, Chills Cardiovascular: Negative for: Chest Pain Gastrointestinal: Positive for: Nausea, Abdominal Pain. Negative for: Diarrhea Physical Exam - Physical Exam Appears: Non-toxic, No Acute Distress Skin: Normal Color, Warm, Dry Head: Atraumatic, Normacephalic Eye(s): bilateral: Normal Inspection, PERRL, EOMI Nose: Normal Oral Mucosa: Moist Neck: Normal, Supple Chest: Symmetrical, No Tenderness Cardiovascular: Rhythm Regular, No Murmur Respiratory: Normal Breath Sounds, No Rales, No Rhonchi, No Wheezing Gastrointestinal/Abdominal: Soft, No Tenderness, No Guarding, No Rebound Extremity: Normal ROM Neurological/Psych: Oriented x3, Normal Speech, Normal Cognition ED Course And Treatment - Laboratory Results Result Diagrams: 09/21/18 15:51 09/21/18 15:51 Lab Results: Total Bilirubin 0.5 mg/dL (0.2-1.3) 09/21/18 15:51 AST 27 U/L (14-36) 09/21/18 15:51 ALT 21 U/L (9-52) 09/21/18 15:51 Alkaline Phosphatase 107 U/L (38-126) 09/21/18 15:51 Total Protein 7.9 g/dL (6.3-8.3) 09/21/18 15:51 Albumin 4.7 g/dL (3.5-5.0) 09/21/18 15:51 Globulin 3.1 gm/dL (2.2-3.9) 09/21/18 15:51 Albumin/Globulin Ratio 1.5 (1.0-2.1) 09/21/18 15:51 Lipase 35 U/L (23-300) 09/21/18 15:51 Interpretation Of ECG: Sinus tachycardia at 110bpm, no ST elevation, peak T- waves. O2 Sat by Pulse Oximetry: 99 (RA) Pulse Ox Interpretation: Normal Medical Decision Making Medical Decision Making: Plan: EKG Chemistry CBC Catapres 0.1mg PO Pepcid 20mg IVP Reglan 10mg IVP NaCl IV Fluids Trandate 10mg IVP Urinalysis Disposition Discussed With : Sharan Chester Counseled Patient/Family Regarding: Studies Performed, Diagnosis - Disposition Disposition: HOSPITALIZED Disposition Time: 16:29 Condition: GUARDED Forms: [facility] (Hong Konger), Gen Discharge Inst Bulgarian - Clinical Impression Clinical Impression: Hypertensive urgency, Abnormal EKG, Vomiting - Scribe Statement The provider has reviewed the documentation as recorded by the Scribe (Dewayne Archuleta) Provider Attestation: All medical record entries made by the Scribe were at my direction and personally dictated by me. I have reviewed the chart and agree that the record accurately reflects my personal performance of the history, physical exam, medical decision making, and the department course for this patient. I have also personally directed, reviewed, and agree with the discharge instructions and disposition.
[2018-09-21 16:29] LABS: LYMPHOCYTE 4 % (20-40); MONOCYTE 2 % (0-10); NEUTROPHIL 94 % (50-75); PLATELET ESTIMATE NORMAL (NORMAL); TOTAL CELLS COUNTED 100
[2018-09-21 16:30] LABS: ANISOCYTOSIS SLIGHT
[2018-09-21 17:31] LABS: SQUAMOUS EPITHIAL < 1 /hpf (0-5); URINE BILIRUBIN NEGATIVE (NEGATIVE); URINE BLOOD NEGATIVE (NEGATIVE); URINE CLARITY Clear (Clear); URINE COLOR Yellow (YELLOW); URINE GLUCOSE (UA) 1+ mg/dL (Normal); URINE LEUKOCYTE ESTERASE NEG Leu/uL (Negative); URINE PROTEIN 1+ mg/dL (NEGATIVE); URINE UROBILINOGEN NORMAL mg/dL (0.2-1.0)
[2018-09-22] MEDS: (Lantus) Insulin Glargine, Recombinant SC SCH ×2 (00:45→21:43)
[2018-09-22 00:59] VITALS: BMI 19.0
[2018-09-22] MEDS: Sodium Chloride 0.9% 1,000 ML IV SCH ×3 (01:09→20:00)
[2018-09-22] MEDS: (Novolin R) Insulin Human Regular 100 units/ml vial SC SCH ×4 (07:59→21:32)
[2018-09-22] MEDS: Enoxaparin 40 mg Syringe SC SCH (10:14)
[2018-09-22] MEDS: Pantoprazole 40 mg EC Tab PO SCH (10:14)
--- NOTE | 2018-09-22 11:00 | CARD ---
APPROVED REPORT Date of service: 09/21/2018 EKG Measurement Heart [id number] <Conclusion> Sinus tachycardia Otherwise normal ECG
--- NOTE | 2018-09-22 22:36 | CP.PCM.HP ---
Present on Admission - Present on Admission Any Indicators Present on Admission: Yes History of Uncontrolled Diabetes: Yes Past Patient History - Past Medical History & Family History Past Medical History?: Yes - Past Social History Smoking Status: Former Smoker - CARDIAC Hx Hypercholesterolemia: Yes Hx Hypertension: Yes - PULMONARY Hx Respiratory Disorders: No - NEUROLOGICAL Hx Neurological Disorder: Yes (DIABETIC NEUROPATHY) Other/Comment: neuropathy - HEENT Hx HEENT Problems: Yes Hx Cataracts: Yes (RIGHT EYE) - RENAL Hx Chronic Kidney Disease: No - ENDOCRINE/METABOLIC Hx Endocrine Disorders: Yes Hx Diabetes Mellitus Type 2: Yes - HEMATOLOGICAL/ONCOLOGICAL Hx Blood Disorders: No - INTEGUMENTARY Hx Dermatological Problems: No - MUSCULOSKELETAL/RHEUMATOLOGICAL Hx Musculoskeletal Disorders: Yes Hx Back Pain: Yes Hx Falls: Yes Other/Comment: neuropathy - GASTROINTESTINAL Hx Gastrointestinal Disorders: No - GENITOURINARY/GYNECOLOGICAL Hx Genitourinary Disorders: No - PSYCHIATRIC Hx Substance Use: No - SURGICAL HISTORY Hx Surgeries: Yes Hx Cataract Extraction: Yes (RIOL) Hx Musculoskeletal Surgery: Yes (LUMBAR SPINE W MARSHA) - ANESTHESIA Hx Anesthesia: Yes Hx Anesthesia Reactions: No Hx Malignant Hyperthermia: No Meds Allergies/Adverse Reactions: Allergies Allergy/AdvReac Type Severity Reaction Status Date / Time No Known Allergies Allergy Verified 04/15/17 12:15 Results - Vital Signs Recent Vital Signs: Last Vital Signs Temp 98.4 F 09/22/18 15:00 Pulse 71 09/22/18 16:35 Resp 20 09/22/18 15:00 BP 95/58 L 09/22/18 15:00 Pulse Ox 98 09/22/18 15:00 - Labs Result Diagrams: 09/21/18 15:51 09/21/18 15:51 Labs: Laboratory Results - last 24 hr 09/22/18 09/22/18 09/22/18 00:30 06:09 06:11 POC Glucose (mg/dL) 63 L 66 Troponin I 0.0790 09/22/18 09/22/18 09/22/18 06:38 08:27 11:05 POC Glucose (mg/dL) 98 228 H Troponin I 0.0450 09/22/18 09/22/18 09/22/18 17:34 17:35 18:00 POC Glucose (mg/dL) 57 L 59 L 115 H Troponin I 09/22/18 09/22/18 18:10 21:04 POC Glucose (mg/dL) 117 H 137 H Troponin I
--- NOTE | 2018-09-23 05:57 | HP ---
CHIEF COMPLAINT: Nausea, vomiting, acute onset x1 day with abdominal pain. HISTORY OF PRESENT ILLNESS: This is a 67-year-old female, well known to me with history of smoking, diabetes, hypertension, and hyperlipidemia, who is compliant with her diet, medication, and followup. She had multiple episodes of acute onset of nausea and vomiting, which once it happens, it is non-stoppable, and the patient ended up having high sugar, high pressure, weakness, dizziness nonstop, and she comes to the emergency room. She had one previous admission like this. On the day of admission, she developed acute onset of nausea, vomiting, and abdominal discomfort, one vomiting along with that. The patient claimed that her appetite has been down even when she is not nauseous or not vomiting. Along with that, she has generalized weakness, polyuria, polydipsia, and polyphagia. There is no history of joint pain, hip pain. She has tingling and numbness in the feet. CURRENT MEDICATIONS: She is on Altace, Protonix, Zofran p.r.n., Levemir, glimepiride, Neurontin, and Lipitor. SOCIAL HISTORY: She smokes, social ETOH user. FAMILY HISTORY: Negative for premature CAD, negative for pancreatitis. PHYSICAL EXAMINATION: GENERAL: An elderly female, in no acute distress. She is calm, quiet, and comfortable right now. VITAL SIGNS: Blood pressure 95/58, pulse 68, respiratory rate 20, and temperature 98.4. SKIN: Dry, poor turgor. HEENT: Atraumatic and normocephalic, negative pallor and negative jaundice. Extraocular movements are intact. NECK: Supple. No JVD, no lymph node, no thyromegaly, and no carotid bruit. CHEST WALL: Bilateral symmetrical expansion. LUNGS: Clear. No rales. No rhonchi. CARDIOVASCULAR SYSTEM: PMI not localized, S1 and S2 regular. No heave, no thrill. ABDOMEN: Soft and nontender. Bowel sounds are positive. RECTAL: No masses, no bleed. PELVIC: Negative discharge, no tenderness. CENTRAL NERVOUS SYSTEM: Awake, alert, and oriented x3. Cranial nerves II through XII are normal. ASSESSMENT: 1. Acute abdominal pain, nausea, and vomiting, rule out diabetic gastroparesis, rule out gastritis, rule out peptic ulcer disease, rule out gastroenteritis. 2. Dehydration. 3. Accelerated hypertension, now pressure is under good control. 4. Diabetes. PLAN: Admit. Detailed orders are written. Seen and examined. Sharan Chester MD
[2018-09-23] MEDS: (Novolin R) Insulin Human Regular 100 units/ml vial SC SCH ×2 (07:37→12:13)
[2018-09-23] MEDS: Sodium Chloride 0.9% 1,000 ML IV SCH (07:38)
[2018-09-23 07:53] VITALS: RESP 20; TEMP 97.8; O2SAT 99
[2018-09-23] MEDS: Enoxaparin 40 mg Syringe SC SCH (10:37)
[2018-09-23] MEDS: Pantoprazole 40 mg EC Tab PO SCH (10:37)
[2018-09-23 12:13] VITALS: BP 148/71; PULSE 73
--- NOTE | 2018-09-23 12:21 | CP.PCM.PN ---
Subjective - Date & Time of Evaluation Date of Evaluation: 09/23/18 Time of Evaluation: 12:21 - Subjective Subjective: PATIENT SEEN AND EXAMINED AT THE BEDSIDE Objective - Vital Signs/Intake and Output Vital Signs (last 24 hours): Temp Pulse Resp BP Pulse Ox 97.8 F 73 20 148/71 99 09/23/18 07:52 09/23/18 10:35 09/23/18 07:52 09/23/18 10:35 09/23/18 07:52 - Medications Medications: Current Medications Enoxaparin Sodium (Lovenox) 40 mg SC DAILY [facility] Last Admin: 09/23/18 10:37 Dose: 40 mg Gabapentin (Neurontin) 600 mg PO TID [facility] Last Admin: 09/23/18 10:37 Dose: 600 mg Glimepiride (Amaryl) 4 mg PO DAILY [facility] Last Admin: 09/23/18 10:37 Dose: 4 mg Sodium Chloride (Sodium Chloride 0.9%) 1,000 mls @ 100 mls/hr IV .Q10H [facility] Last Admin: 09/23/18 07:38 Dose: Not Given Insulin Glargine (Lantus) 16 unit SC [facility] Last Admin: 09/22/18 21:43 Dose: 16 units Insulin Human Regular (Novolin R) 0 unit SC [facility]; Protocol Last Admin: 09/23/18 12:13 Dose: Not Given Lisinopril (Zestril) 10 mg PO DAILY [facility] Last Admin: 09/23/18 10:36 Dose: 10 mg Ondansetron HCl (Zofran Odt) 4 mg PO BID PRN PRN Reason: Nausea/Vomiting Last Admin: 09/23/18 07:41 Dose: 4 mg Pantoprazole Sodium (Protonix Ec Tab) 40 mg PO DAILY [facility] Last Admin: 09/23/18 10:37 Dose: 40 mg Rosuvastatin Calcium (Crestor) 20 mg PO [facility] Last Admin: 09/22/18 21:43 Dose: 20 mg - Labs Labs: 09/21/18 15:51 09/21/18 15:51 Assessment and Plan - Assessment and Plan (Free Text) Assessment: FOLLOW UP WITH DR ACOSTA IN HIS OFFICE -----CALL FOR APPOINTMENT CONTINUE HOME MEDICATION NEW PRESCRIPTION GIVEN GLIMEPIRIDE WAS DECREASE TO 4 MG PO DAILY ACTIVITY TOLERATED CALL DR ACOSTA OR GO TO THE EMERGENCY ROOM IF SYMPTOM RETURN OR WORSENING
--- NOTE | 2018-09-23 21:27 | CP.PCM.DIS ---
Provider - Provider Date of Admission: 09/21/18 16:26 Attending physician: Sharan Chester MD Time Spent in preparation of Discharge (in minutes): 30 Hospital Course - Lab Results Lab Results: Most Recent Lab Values WBC 11.6 K/uL (4.8-10.8) H 09/21/18 15:51 RBC 4.25 Mil/uL (3.80-5.20) 09/21/18 15:51 Hgb 13.6 g/dL (11.0-16.0) 09/21/18 15:51 Hct 40.4 % (34.0-47.0) 09/21/18 15:51 MCV 95.0 fL (81.0-99.0) 09/21/18 15:51 MCH 32.0 pg (27.0-31.0) H 09/21/18 15:51 MCHC 33.7 g/dL (33.0-37.0) 09/21/18 15:51 RDW 14.4 % (11.5-14.5) 09/21/18 15:51 Plt Count 200 K/uL (130-400) 09/21/18 15:51 MPV 10.9 fL (7.2-11.7) 09/21/18 15:51 Neut % (Auto) 92.2 % (50.0-75.0) H 09/21/18 15:51 Lymph % (Auto) 4.4 % (20.0-40.0) L 09/21/18 15:51 [place] % (Auto) 3.0 % (0.0-10.0) 09/21/18 15:51 Eos % (Auto) 0.0 % (0.0-4.0) 09/21/18 15:51 Baso % (Auto) 0.4 % (0.0-2.0) 09/21/18 15:51 Neut # (Auto) 10.7 K/uL (1.8-7.0) H 09/21/18 15:51 Lymph # (Auto) 0.5 K/uL (1.0-4.3) L 09/21/18 15:51 [place] # (Auto) 0.3 K/uL (0.0-0.8) 09/21/18 15:51 Eos # (Auto) 0.0 K/uL (0.0-0.7) 09/21/18 15:51 Baso # (Auto) 0.1 K/uL (0.0-0.2) 09/21/18 15:51 Neutrophils % (Manual) 94 % (50-75) H 09/21/18 15:51 Lymphocytes % (Manual) 4 % (20-40) L 09/21/18 15:51 Monocytes % (Manual) 2 % (0-10) 09/21/18 15:51 Platelet Estimate Normal (NORMAL) 09/21/18 15:51 Anisocytosis (manual) Slight 09/21/18 15:51 Macrocytosis (manual) Slight 09/21/18 15:51 Sodium 138 mmol/L (132-148) 09/21/18 15:51 Potassium 4.3 mmol/L (3.6-5.2) 09/21/18 15:51 Chloride 99 mmol/L (98-107) 09/21/18 15:51 Carbon Dioxide 25 mmol/L (22-30) 09/21/18 15:51 Anion Gap 19 (10-20) 09/21/18 15:51 BUN 25 mg/dL (7-17) H 09/21/18 15:51 Creatinine 0.8 mg/dL (0.7-1.2) 09/21/18 15:51 Est GFR ( Amer) > 60 09/21/18 15:51 Est GFR (Non-Af Amer) > 60 09/21/18 15:51 POC Glucose (mg/dL) 191 mg/dL (65-110) H 09/23/18 11:00 Random Glucose 186 mg/dL (65-105) H D 09/21/18 15:51 Calcium 9.6 mg/dl (8.6-10.4) 09/21/18 15:51 Total Bilirubin 0.5 mg/dL (0.2-1.3) 09/21/18 15:51 AST 27 U/L (14-36) 09/21/18 15:51 ALT 21 U/L (9-52) 09/21/18 15:51 Alkaline Phosphatase 107 U/L (38-126) 09/21/18 15:51 Troponin I 0.0450 ng/mL (0.00-0.120) 09/22/18 08:27 Total Protein 7.9 g/dL (6.3-8.3) 09/21/18 15:51 Albumin 4.7 g/dL (3.5-5.0) 09/21/18 15:51 Globulin 3.1 gm/dL (2.2-3.9) 09/21/18 15:51 Albumin/Globulin Ratio 1.5 (1.0-2.1) 09/21/18 15:51 Lipase 35 U/L (23-300) 09/21/18 15:51 Urine Color Yellow (YELLOW) 09/21/18 17:15 Urine Clarity Clear (Clear) 09/21/18 17:15 Urine pH 5.0 (5.0-8.0) 09/21/18 17:15 Ur Specific [place] 1.016 (1.003-1.030) 09/21/18 17:15 Urine Protein 1+ mg/dL (NEGATIVE) H 09/21/18 17:15 Urine Glucose (UA) 1+ mg/dL (Normal) 09/21/18 17:15 Urine Ketones 1+ mg/dL (NEGATIVE) H 09/21/18 17:15 Urine Blood Negative (NEGATIVE) 09/21/18 17:15 Urine Nitrate Negative (NEGATIVE) 09/21/18 17:15 Urine Bilirubin Negative (NEGATIVE) 09/21/18 17:15 Urine Urobilinogen Normal mg/dL (0.2-1.0) 09/21/18 17:15 Ur Leukocyte Esterase Neg Cristina/uL (Negative) 09/21/18 17:15 Urine WBC (Auto) 1 /hpf (0-5) 09/21/18 17:15 Urine RBC (Auto) 1 /hpf (0-3) 09/21/18 17:15 Ur Squamous Epith Cells < 1 /hpf (0-5) 09/21/18 17:15 Hyaline Casts 3-5 /lpf (0-2) H 09/21/18 17:15 Discharge Plan - Discharge Medications Prescriptions: Glimepiride [amaRYL] 4 mg PO DAILY 30 Days tab - Follow Up Plan Condition: GUARDED Disposition: HOME/ ROUTINE Instructions: Type 2 Diabetes, High Blood Pressure (DC), Diabetes Diet , Nausea and Vomiting, Adult (DC), Glimepiride Additional Instructions: FOLLOW UP WITH DR CHESTER IN HIS OFFICE -----CALL FOR APPOINTMENT CONTINUE HOME MEDICATION NEW PRESCRIPTION GIVEN GLIMEPIRIDE WAS DECREASED TO 4 MG PO DAILY ACTIVITY TOLERATED CALL DR CHESTER OR GO TO THE EMERGENCY ROOM IF SYMPTOM RETURN OR WORSENING Referrals: Sharan Chester MD [Staff Provider] -
--- NOTE | 2018-09-24 04:01 | DS ---
DISCHARGE DIAGNOSES: 1. Diabetic gastroparesis with gastritis. 2. Diabetes. 3. Hypertension. HISTORY OF PRESENT ILLNESS: This is a 67-year-old female with history of type 2 diabetes, hypertension, hyperlipidemia. She is a smoker. She came in because of abdominal pain, nausea, vomiting. She has recurrent attacks of abdominal pain, nausea, vomiting, due to diabetic gastroparesis. The patient was admitted to the floor. The patient did well. The patient received treatment with antiemetics, close observation and she is feeling better. She is for discharge. Medications have been adjusted. She has been given Zofran for vomiting and she will be followed up as outpatient. Sharan Chester MD
== END 2018-09-23 13:06 | disposition home or self-care (01) ==
LOC: C.ER 14:52 → C.9E 16:26 → C.5S 17:27
PROVIDERS: ADMIT Internal Medicine; ATTEND Internal Medicine
DX: E11.43 Type 2 diabetes mellitus with diabetic autonomic (poly)neuropathy (principal); E78.5 Hyperlipidemia, unspecified; E86.0 Dehydration; F17.200 Nicotine dependence, unspecified, uncomplicated; I10 Essential (primary) hypertension; K29.70 Gastritis, unspecified, without bleeding; K31.84 Gastroparesis; R63.1 Polydipsia; I16.0 Hypertensive urgency; R94.31 Abnormal electrocardiogram [ECG] [EKG]
CPT/HCPCS: 36415; 80053; 81001; 82948; 83690; 84484; 85025; 93005; 96374; 99285; G0378; J1650; J2765; J7030